=== PATIENT | female | born 1935 | race Caucasian/White ===

== ENCOUNTER 2019-06-09 07:02 | Inpatient (IN) | payer MEDICARE, MEDICAID ==
[~2019-06-09] VITALS: Ht 154.9 cm; Wt 66.2 kg
[~2019-06-09 07:02] MED LIST: ALIS150T PO; AMLO1TAB12 PO; CALC500T62 PO; ESCI-8 PO; FLAX10002 PO; METH500T6 PO; METO-416 PO; MULT-598 PO; QUET50TA PO; TRAM50TA4 PO
[2019-06-09 07:43] LABS: BASOPHILS % (AUTO) 0.7 % (0.0-2.0); EOSINOPHILS % (AUTO) 3.1 % (1.0-6.0); HEMATOCRIT 31.9 % (36-46); HEMOGLOBIN 10.6 g/dL (12.0-16.0); LYMPHOCYTES # (AUTO) 1.6 K/uL (1.0-4.8); LYMPHOCYTES % (AUTO) 32.8 % (22.0-44.0); MEAN CORPUSCULAR HEMOGLOBIN 30.6 pg (26.0-34.0); MEAN CORPUSCULAR HGB CONC 33.3 G/dL (31.0-37.0); MEAN CORPUSCULAR VOLUME 92 fL (80-100); MONOCYTES # (AUTO) 0.4 K/uL (0.1-1.0); MONOCYTES % (AUTO) 8.5 % (2.0-9.0); NEUTROPHILS # (AUTO) 2.6 K/uL (1.8-7.7); NEUTROPHILS % (AUTO) 54.9 % (40.0-70.0); PLATELET COUNT (AUTO) 159 K/uL (150-450); RED BLOOD CELL COUNT(AUTO) 3.48 MIL/uL (4.00-5.20); RED CELL DISTRIBUTION WIDTH 13.1 % (11.5-14.5)
[2019-06-09 07:53] LABS: ANION GAP 8 mmol/L (8-16); CALCIUM, TOTAL 8.7 mg/dL (8.8-10.5); CARBON DIOXIDE 27 mmol/L (22-29); CHLORIDE 110 mmol/L (98-107); CREATININE 1.01 mg/dL (0.60-1.30); GLOMERULAR FILTR. RATE CALC 52 mL/min (>60); GLUCOSE,RANDOM 98 mg/dL (70-110); SODIUM SERUM 145 mmol/L (136-145); UREA NITROGEN, BLOOD 25 mg/dL (7-18)
[2019-06-09 08:06] LABS: ALANINE AMINOTRANSFERASE 27 U/L (12-78); ALBUMIN 3.1 g/dL (3.4-5.0); ALKALINE PHOSPHATASE 59 U/L (46-116); ASPARTATE AMINOTRANSFERASE 23 U/L (15-37); BILIRUBIN,TOTAL 0.1 mg/dL (0.1-1.0); THYROID STIMULATING HORMONE 9.59 uIU/mL (0.36-3.74); TOTAL PROTEIN, SERUM 6.7 g/dL (6.4-8.2)
[2019-06-09 09:45] LABS: APPEARANCE,URINE CLEAR (CLEAR); BILIRUBIN,URINE NEGATIVE (NEGATIVE); GLUCOSE, URINE (UA) NEGATIVE (NEGATIVE); KETONES,URINE NEGATIVE (NEGATIVE); LEUKOCYTE ESTERASE ,URINE NEGATIVE (NEGATIVE); NITRATE,URINE NEGATIVE (NEGATIVE); OCCULT BLOOD,URINE MODERATE (NEGATIVE); PH,URINE 7.5 (5.0-8.0); PROTEIN,URINE NEGATIVE (NEGATIVE); UROBILINOGEN,URINE 0.2 mg/dL (<=1.0)
[2019-06-09 09:51] LABS: AMPHET/METH SCREEN,URINE NEGATIVE (NEGATIVE); BARBITURATE SCREEN, URINE NEGATIVE (NEGATIVE); BENZODIAZEPINES SCREEN,URINE NEGATIVE (NEGATIVE); CANNABINOID SCREEN,URINE NEGATIVE (NEGATIVE); COCAINE SCREEN,URINE NEGATIVE (NEGATIVE); METHADONE SCREEN, URINE NEGATIVE (NEGATIVE); OPIATE SCREEN,URINE NEGATIVE (NEGATIVE); PHENCYCLIDINE SCREEN,URINE NEGATIVE (NEGATIVE)
[2019-06-09 09:57] LABS: BACTERIA,URINE None Seen /HPF (None Seen); WBC,URINE 0-2 /HPF (0-5)
[2019-06-09] MEDS ORDERED: DiphenhydrAMINE HCL 50 MG/ML VIAL ONE (11:59)
[2019-06-09] MEDS ORDERED: HALOPERIDOL LACTATE 5 MG/ML VIAL ONE (11:59)
[2019-06-09] MEDS ORDERED: LORazepam 2 MG/ML VIAL ONE (11:59)
[2019-06-09] MEDS ORDERED: HALOPERIDOL LACTATE 5 MG/ML VIAL IM ONE (12:00)
[2019-06-09] MEDS ORDERED: DiphenhydrAMINE HCL 50 MG/ML VIAL IM ONE (12:00)
[2019-06-09] MEDS ORDERED: LORazepam 2 MG/ML VIAL IM ONE (12:00)
[2019-06-09] MEDS ORDERED: AMLO1TAB12 PO (12:05)
[2019-06-09] MEDS ORDERED: METO25XL PO (12:05)
[2019-06-09] MEDS ORDERED: OS500 PO (12:05)
[2019-06-09] MEDS ORDERED: LORA10TA7 PO (12:06)
[2019-06-09] MEDS ORDERED: LISI40TA4 PO (12:06)
[2019-06-09] MEDS ORDERED: [UNRECOGNIZED DRUG - CODE] PO (12:06)
[2019-06-09] MEDS ORDERED: HydrOXYzine PAMOATE 50 MG CAPSULE PO PRN (13:45)
[2019-06-09] MEDS ORDERED: MAGNESIUM HYDROXIDE SUSPENSION 30 ML UDCUP PO PRN ×2 (13:45→20:30)
[2019-06-09] MEDS ORDERED: LOPERAMIDE HCL 2 MG CAPSULE PO PRN ×2 (13:45→20:30)
[2019-06-09] MEDS ORDERED: MAG HYDROX/AL HYDROX/SIMETH ES 30 ML SUSPENSION UDCUP PO PRN (13:45)
[2019-06-09] MEDS ORDERED: PROMETHAZINE HCL 25 MG TABLET PO PRN (13:45)
[2019-06-09] MEDS ORDERED: CYANOCOBALAMIN 1,000 MCG/ML VIAL IM ONE (13:45)
[2019-06-09] MEDS ORDERED: LORazepam 2 MG TABLET PO PRN (13:45)
[2019-06-09] MEDS ORDERED: TUBERCULIN, PURIFIED PROTEIN DERIVATIVE 5 TU/0.1 ML SYRINGE ID ONE (13:45)
[2019-06-09] MEDS ORDERED: GuaiFENesin/D-METHORPHAN [SUGAR-FREE] 200-20MG/10 ML SYRUP UDCUP PO PRN (13:45)
[2019-06-09] MEDS: THIAMINE 100 MG TABLET PO SCH (17:36)
[2019-06-09 20:26] VITALS: BP 167/78
[2019-06-09] MEDS ORDERED: ALBUTEROL SULFATE HFA 90 MCG/PUFF 8 GM INHALER IH PRN (20:30)
[2019-06-09] MEDS ORDERED: NICOTINE 14 MG/24 HOUR PATCH TD PRN (20:30)
[2019-06-09] MEDS ORDERED: DOCUSATE SODIUM 100 MG CAPSULE PO PRN (20:30)
[2019-06-09] MEDS ORDERED: ONDANSETRON HCL 4 MG TABLET PO PRN (20:30)
[2019-06-09 21:47] VITALS: BP 167/78
[2019-06-09] MEDS: AmLODIPine BESYLATE 5 MG TABLET PO SCH (22:40)
[2019-06-10] MEDS: LURASIDONE HCL 40 MG TABLET PO SCH (06:56)
[2019-06-10 07:18] LABS: HEMOGLOBIN A1C 5.4 % (3.8-5.6)
[2019-06-10 07:29] LABS: CHOL/HDL RATIO 2.8 (3.9-5.7); FREE T4 (FREE THYROXINE) 1.05 ng/dL (0.76-1.46); THYROID STIMULATING HORMONE 8.04 uIU/mL (0.36-3.74)
[2019-06-10 08:00] VITALS: BP 166/80
[2019-06-10] MEDS: AmLODIPine BESYLATE 5 MG TABLET PO SCH (08:27)
[2019-06-10] MEDS: LORATADINE 10 MG TABLET PO SCH (08:27)
[2019-06-10] MEDS: THIAMINE 100 MG TABLET PO SCH ×2 (08:27→16:08)
[2019-06-10] MEDS: FOLIC ACID 1 MG TABLET PO SCH (08:27)
[2019-06-10] MEDS: METOPROLOL SUCCINATE 25 MG ER TABLET PO SCH (08:27)
[2019-06-10] MEDS: MULTIVITAMINS WITH MINERALS, THERAPEUTIC TABLET PO SCH (08:27)
[2019-06-10] MEDS: OLANZapine 5 MG RAPDIS TABLET PO PRN (11:04)
[2019-06-10 16:17] VITALS: BP 144/52
[2019-06-11] MEDS: LURASIDONE HCL 40 MG TABLET PO SCH (06:55)
[2019-06-11] MEDS: MULTIVITAMINS WITH MINERALS, THERAPEUTIC TABLET PO SCH (08:25)
[2019-06-11] MEDS: AmLODIPine BESYLATE 5 MG TABLET PO SCH (08:25)
[2019-06-11] MEDS: THIAMINE 100 MG TABLET PO SCH ×2 (08:25→16:58)
[2019-06-11] MEDS: FOLIC ACID 1 MG TABLET PO SCH (08:25)
[2019-06-11] MEDS: LORATADINE 10 MG TABLET PO SCH (08:25)
[2019-06-11] MEDS: METOPROLOL SUCCINATE 25 MG ER TABLET PO SCH (08:25)
[2019-06-11 08:46] VITALS: BP 165/76
[2019-06-11] MEDS ORDERED: ONDANSETRON HCL 4 MG TABLET PO PRN (16:00)
[2019-06-11] MEDS ORDERED: IBUPROFEN 400 MG TABLET PO PRN (16:00)
[2019-06-11] MEDS ORDERED: LOPERAMIDE HCL 2 MG CAPSULE PO PRN (16:00)
[2019-06-11] MEDS ORDERED: ACETAMINOPHEN 325 MG TABLET PO PRN (16:00)
[2019-06-11] MEDS ORDERED: CloNIDine HCL 0.1 MG TABLET PO PRN (16:00)
[2019-06-11] MEDS ORDERED: GuaiFENesin/D-METHORPHAN [SUGAR-FREE] 200-20MG/10 ML SYRUP UDCUP PO PRN (16:00)
[2019-06-11] MEDS ORDERED: MAGNESIUM HYDROXIDE SUSPENSION 30 ML UDCUP PO PRN (16:00)
[2019-06-11] MEDS ORDERED: MAG HYDROX/AL HYDROX/SIMETH ES 30 ML SUSPENSION UDCUP PO PRN (16:00)
[2019-06-11] MEDS ORDERED: PETROLATUM,WHITE 28 GM JELLY TP PRN (16:00)
[2019-06-11] MEDS ORDERED: ALBUTEROL SULFATE HFA 90 MCG/PUFF 8 GM INHALER IH PRN (16:00)
[2019-06-11] MEDS ORDERED: DOCUSATE SODIUM 100 MG CAPSULE PO PRN (16:00)
[2019-06-11] MEDS ORDERED: NICOTINE 14 MG/24 HOUR PATCH TD PRN (16:00)
[2019-06-11 16:28] VITALS: BP 141/50
[2019-06-12 02:28] VITALS: BP 165/85
[2019-06-12] MEDS: LURASIDONE HCL 40 MG TABLET PO SCH (06:39)
[2019-06-12 08:52] VITALS: BP 166/74
[2019-06-12] MEDS ORDERED: [UNRECOGNIZED DRUG - OTHER] PO SCH (09:00)
[2019-06-12] MEDS ORDERED: [UNRECOGNIZED DRUG - OTHER] PO SCH (09:00)
[2019-06-12] MEDS: LORATADINE 10 MG TABLET PO SCH (09:08)
[2019-06-12] MEDS: CALCIUM OYSTER SHELL 500 MG TABLET PO SCH (09:08)
[2019-06-12] MEDS: FOLIC ACID 1 MG TABLET PO SCH (09:08)
[2019-06-12] MEDS: THIAMINE 100 MG TABLET PO SCH ×2 (09:08→16:55)
[2019-06-12] MEDS: AmLODIPine BESYLATE 5 MG TABLET PO SCH (09:08)
[2019-06-12] MEDS: MULTIVITAMINS WITH MINERALS, THERAPEUTIC TABLET PO SCH (09:08)
[2019-06-12] MEDS: METOPROLOL SUCCINATE 25 MG ER TABLET PO SCH (09:08)
[2019-06-12] MEDS: VALSARTAN 160 MG TABLET PO SCH (09:09)
[2019-06-12 17:30] VITALS: BP 160/86
[2019-06-13] MEDS: LURASIDONE HCL 40 MG TABLET PO SCH (06:56)
[2019-06-13] MEDS: VALSARTAN 160 MG TABLET PO SCH (08:07)
[2019-06-13] MEDS: FOLIC ACID 1 MG TABLET PO SCH (08:07)
[2019-06-13] MEDS: CALCIUM OYSTER SHELL 500 MG TABLET PO SCH (08:07)
[2019-06-13] MEDS: MULTIVITAMINS WITH MINERALS, THERAPEUTIC TABLET PO SCH (08:07)
[2019-06-13] MEDS: THIAMINE 100 MG TABLET PO SCH ×2 (08:07→16:22)
[2019-06-13] MEDS: LORATADINE 10 MG TABLET PO SCH (08:07)
[2019-06-13] MEDS: METOPROLOL SUCCINATE 25 MG ER TABLET PO SCH (08:07)
[2019-06-13 08:18] VITALS: BP 192/70
[2019-06-13] MEDS: AmLODIPine BESYLATE 5 MG TABLET PO SCH (11:12)
[2019-06-13 16:04] VITALS: BP 158/65
[2019-06-14] MEDS: LURASIDONE HCL 40 MG TABLET PO SCH ×3 (06:55→07:30)
[2019-06-14] MEDS ORDERED: LORazepam 2 MG/ML VIAL IM ONE (08:15)
[2019-06-14] MEDS ORDERED: DiphenhydrAMINE HCL 50 MG/ML VIAL IM ONE (08:15)
[2019-06-14] MEDS ORDERED: HALOPERIDOL LACTATE 5 MG/ML VIAL IM ONE (08:15)
[2019-06-14] MEDS: THIAMINE 100 MG TABLET PO SCH ×2 (09:00→16:42)
[2019-06-14] MEDS: METOPROLOL SUCCINATE 25 MG ER TABLET PO SCH (09:00)
[2019-06-14] MEDS: FOLIC ACID 1 MG TABLET PO SCH (09:00)
[2019-06-14] MEDS: CALCIUM OYSTER SHELL 500 MG TABLET PO SCH (09:00)
[2019-06-14] MEDS: VALSARTAN 160 MG TABLET PO SCH (09:00)
[2019-06-14] MEDS: AmLODIPine BESYLATE 5 MG TABLET PO SCH (09:00)
[2019-06-14] MEDS: LORATADINE 10 MG TABLET PO SCH (09:00)
[2019-06-14] MEDS: MULTIVITAMINS WITH MINERALS, THERAPEUTIC TABLET PO SCH (09:00)
[2019-06-14 16:09] VITALS: BP 158/75
[2019-06-15 01:43] VITALS: BP 153/73
[2019-06-15] MEDS: LURASIDONE HCL 40 MG TABLET PO SCH (07:14)
[2019-06-15] MEDS: AmLODIPine BESYLATE 5 MG TABLET PO SCH (10:08)
[2019-06-15] MEDS: MULTIVITAMINS WITH MINERALS, THERAPEUTIC TABLET PO SCH (10:08)
[2019-06-15] MEDS: FOLIC ACID 1 MG TABLET PO SCH (10:08)
[2019-06-15] MEDS: LORATADINE 10 MG TABLET PO SCH (10:08)
[2019-06-15] MEDS: VALSARTAN 160 MG TABLET PO SCH (10:09)
[2019-06-15] MEDS: LORazepam 0.5 MG TABLET PO PRN (10:09)
[2019-06-15] MEDS: METOPROLOL SUCCINATE 25 MG ER TABLET PO SCH (10:09)
[2019-06-15] MEDS: THIAMINE 100 MG TABLET PO SCH ×2 (10:09→16:45)
[2019-06-15] MEDS: OLANZapine 5 MG RAPDIS TABLET PO PRN (10:09)
[2019-06-15] MEDS: CALCIUM OYSTER SHELL 500 MG TABLET PO SCH (10:09)
[2019-06-15 10:33] VITALS: BP 153/60
[2019-06-15 18:07] VITALS: BP 128/61
[2019-06-16 01:50] VITALS: BP 158/65
[2019-06-16] MEDS: IBUPROFEN 400 MG TABLET PO PRN ×2 (01:55→21:53)
[2019-06-16 02:03] VITALS: BP 158/65
[2019-06-16] MEDS: LURASIDONE HCL 40 MG TABLET PO SCH (06:44)
[2019-06-16 08:19] VITALS: BP 162/69
[2019-06-16] MEDS: AmLODIPine BESYLATE 10 MG TABLET PO SCH (08:57)
[2019-06-16] MEDS: FOLIC ACID 1 MG TABLET PO SCH (08:57)
[2019-06-16] MEDS: CALCIUM OYSTER SHELL 500 MG TABLET PO SCH (08:57)
[2019-06-16] MEDS: MULTIVITAMINS WITH MINERALS, THERAPEUTIC TABLET PO SCH (08:57)
[2019-06-16] MEDS: THIAMINE 100 MG TABLET PO SCH ×2 (08:57→16:41)
[2019-06-16] MEDS: LORATADINE 10 MG TABLET PO SCH (09:00)
[2019-06-16] MEDS: VALSARTAN 160 MG TABLET PO SCH (09:00)
[2019-06-16] MEDS: METOPROLOL SUCCINATE 25 MG ER TABLET PO SCH (09:00)
[2019-06-16 16:22] VITALS: BP 160/72
[2019-06-16 21:53] VITALS: BP 120/80
[2019-06-17] MEDS ORDERED: HALOPERIDOL LACTATE 5 MG/ML VIAL IM ONE (07:30)
[2019-06-17] MEDS ORDERED: LORazepam 2 MG/ML VIAL IM ONE (07:30)
[2019-06-17] MEDS ORDERED: DiphenhydrAMINE HCL 50 MG/ML VIAL IM ONE (07:30)
[2019-06-17] MEDS: THIAMINE 100 MG TABLET PO SCH ×2 (09:16→16:35)
[2019-06-17] MEDS: CALCIUM OYSTER SHELL 500 MG TABLET PO SCH (09:16)
[2019-06-17] MEDS: VALSARTAN 160 MG TABLET PO SCH (09:16)
[2019-06-17] MEDS: AmLODIPine BESYLATE 10 MG TABLET PO SCH (09:16)
[2019-06-17] MEDS: LORATADINE 10 MG TABLET PO SCH (09:19)
[2019-06-17] MEDS: FOLIC ACID 1 MG TABLET PO SCH (09:19)
[2019-06-17] MEDS: METOPROLOL SUCCINATE 25 MG ER TABLET PO SCH (09:19)
[2019-06-17] MEDS: MULTIVITAMINS WITH MINERALS, THERAPEUTIC TABLET PO SCH (09:19)
[2019-06-17] MEDS: LURASIDONE HCL 40 MG TABLET PO SCH (12:33)
[2019-06-17 14:18] VITALS: BP 142/76
[2019-06-17 16:24] VITALS: BP 132/84
[2019-06-17] MEDS: OLANZapine 5 MG RAPDIS TABLET PO PRN (16:37)
[2019-06-17] MEDS: LORazepam 0.5 MG TABLET PO PRN (17:22)
[2019-06-18 01:13] VITALS: BP 152/85
[2019-06-18] MEDS: MAG HYDROX/AL HYDROX/SIMETH ES 30 ML SUSPENSION UDCUP PO PRN (05:31)
[2019-06-18] MEDS: LURASIDONE HCL 40 MG TABLET PO SCH (06:36)
[2019-06-18] MEDS: THIAMINE 100 MG TABLET PO SCH ×2 (08:33→17:00)
[2019-06-18] MEDS: LORATADINE 10 MG TABLET PO SCH (08:33)
[2019-06-18] MEDS: CALCIUM OYSTER SHELL 500 MG TABLET PO SCH (08:33)
[2019-06-18] MEDS: MULTIVITAMINS WITH MINERALS, THERAPEUTIC TABLET PO SCH (08:33)
[2019-06-18] MEDS: FOLIC ACID 1 MG TABLET PO SCH (08:33)
[2019-06-18] MEDS: METOPROLOL SUCCINATE 25 MG ER TABLET PO SCH (08:33)
[2019-06-18] MEDS: AmLODIPine BESYLATE 10 MG TABLET PO SCH (08:34)
[2019-06-18] MEDS: VALSARTAN 160 MG TABLET PO SCH (08:34)
[2019-06-18 09:45] VITALS: BP 138/68
[2019-06-18] MEDS ORDERED: HALOPERIDOL LACTATE 5 MG/ML VIAL IM ONE (20:00)
[2019-06-18] MEDS ORDERED: DiphenhydrAMINE HCL 50 MG/ML VIAL IM ONE (20:00)
[2019-06-18] MEDS ORDERED: LORazepam 2 MG/ML VIAL IM ONE (20:00)
[2019-06-19] MEDS: ACETAMINOPHEN 325 MG TABLET PO PRN (00:19)
[2019-06-19 00:21] VITALS: BP 160/77
[2019-06-19] MEDS: LURASIDONE HCL 40 MG TABLET PO SCH (06:41)
[2019-06-19] MEDS: LEVOTHYROXINE SODIUM 25 MCG TABLET PO SCH (06:41)
[2019-06-19 08:30] VITALS: BP 138/60
[2019-06-19] MEDS: CALCIUM OYSTER SHELL 500 MG TABLET PO SCH (10:14)
[2019-06-19] MEDS: METOPROLOL SUCCINATE 25 MG ER TABLET PO SCH (10:14)
[2019-06-19] MEDS: VALSARTAN 160 MG TABLET PO SCH (10:14)
[2019-06-19] MEDS: AmLODIPine BESYLATE 10 MG TABLET PO SCH (10:14)
[2019-06-19] MEDS: LORATADINE 10 MG TABLET PO SCH (10:15)
[2019-06-19] MEDS: THIAMINE 100 MG TABLET PO SCH (10:15)
[2019-06-19] MEDS: MULTIVITAMINS WITH MINERALS, THERAPEUTIC TABLET PO SCH (10:15)
[2019-06-19] MEDS: FOLIC ACID 1 MG TABLET PO SCH (10:15)
[2019-06-19 16:23] VITALS: BP 146/66
[2019-06-19] MEDS ORDERED: LORazepam 2 MG/ML VIAL IM ONE (19:00)
[2019-06-19] MEDS ORDERED: DiphenhydrAMINE HCL 50 MG/ML VIAL IM ONE (19:00)
[2019-06-19] MEDS ORDERED: HALOPERIDOL LACTATE 5 MG/ML VIAL IM ONE (19:00)
[2019-06-20] MEDS: ACETAMINOPHEN 325 MG TABLET PO PRN (00:23)
[2019-06-20] MEDS: MAG HYDROX/AL HYDROX/SIMETH ES 30 ML SUSPENSION UDCUP PO PRN (01:04)
[2019-06-20] MEDS: LURASIDONE HCL 40 MG TABLET PO SCH (07:01)
[2019-06-20] MEDS: LEVOTHYROXINE SODIUM 25 MCG TABLET PO SCH (07:01)
[2019-06-20 08:05] VITALS: BP 129/60
[2019-06-20] MEDS: LORATADINE 10 MG TABLET PO SCH (09:00)
[2019-06-20] MEDS: VALSARTAN 160 MG TABLET PO SCH (09:00)
[2019-06-20] MEDS: METOPROLOL SUCCINATE 25 MG ER TABLET PO SCH (09:00)
[2019-06-20] MEDS: CALCIUM OYSTER SHELL 500 MG TABLET PO SCH (09:00)
[2019-06-20] MEDS: MULTIVITAMINS WITH MINERALS, THERAPEUTIC TABLET PO SCH (09:00)
[2019-06-20] MEDS: AmLODIPine BESYLATE 10 MG TABLET PO SCH (09:00)
[2019-06-20 16:18] VITALS: BP 127/72
[2019-06-20] MEDS: LORazepam 0.5 MG TABLET PO PRN (17:20)
[2019-06-20] MEDS: OLANZapine 5 MG RAPDIS TABLET PO PRN (21:12)
[2019-06-21] MEDS: LEVOTHYROXINE SODIUM 25 MCG TABLET PO SCH (07:00)
[2019-06-21] MEDS: LURASIDONE HCL 40 MG TABLET PO SCH (07:03)
[2019-06-21] MEDS: CALCIUM OYSTER SHELL 500 MG TABLET PO SCH ×2 (08:28→09:00)
[2019-06-21] MEDS: MULTIVITAMINS WITH MINERALS, THERAPEUTIC TABLET PO SCH ×2 (08:28→09:00)
[2019-06-21] MEDS: METOPROLOL SUCCINATE 25 MG ER TABLET PO SCH ×2 (08:29→09:00)
[2019-06-21] MEDS: LORATADINE 10 MG TABLET PO SCH (09:00)
[2019-06-21] MEDS: VALSARTAN 160 MG TABLET PO SCH (09:00)
[2019-06-21 16:05] VITALS: BP 156/79
[2019-06-21 17:30] VITALS: BP 144/67
[2019-06-21] MEDS: LORazepam 0.5 MG TABLET PO PRN (17:44)
[2019-06-22 05:16] VITALS: BP 133/63
[2019-06-22] MEDS: LEVOTHYROXINE SODIUM 25 MCG TABLET PO SCH (06:33)
[2019-06-22] MEDS: LURASIDONE HCL 40 MG TABLET PO SCH (06:34)
[2019-06-22] MEDS: VALSARTAN 160 MG TABLET PO SCH (08:05)
[2019-06-22] MEDS: METOPROLOL SUCCINATE 25 MG ER TABLET PO SCH (08:05)
[2019-06-22] MEDS: MULTIVITAMINS WITH MINERALS, THERAPEUTIC TABLET PO SCH (08:05)
[2019-06-22] MEDS: CALCIUM OYSTER SHELL 500 MG TABLET PO SCH (08:05)
[2019-06-22] MEDS: LORATADINE 10 MG TABLET PO SCH (08:05)
[2019-06-22] MEDS: LORazepam 0.5 MG TABLET PO PRN ×2 (08:08→17:34)
[2019-06-22 12:45] VITALS: BP 175/79
[2019-06-22 16:43] VITALS: BP 145/82
[2019-06-22] MEDS: OLANZapine 5 MG RAPDIS TABLET PO PRN (17:34)
[2019-06-23] MEDS: LEVOTHYROXINE SODIUM 25 MCG TABLET PO SCH (06:56)
[2019-06-23] MEDS: LURASIDONE HCL 40 MG TABLET PO SCH (07:03)
[2019-06-23] MEDS: LORATADINE 10 MG TABLET PO SCH (09:24)
[2019-06-23] MEDS: CALCIUM OYSTER SHELL 500 MG TABLET PO SCH (09:24)
[2019-06-23] MEDS: METOPROLOL SUCCINATE 25 MG ER TABLET PO SCH (09:24)
[2019-06-23] MEDS: MULTIVITAMINS WITH MINERALS, THERAPEUTIC TABLET PO SCH (09:24)
[2019-06-23] MEDS: VALSARTAN 160 MG TABLET PO SCH (09:25)
[2019-06-23 10:22] VITALS: BP 143/59
[2019-06-23 13:05] VITALS: BP 142/68
[2019-06-23] MEDS: ACETAMINOPHEN 325 MG TABLET PO PRN (13:05)
[2019-06-23 16:08] VITALS: BP 150/62
[2019-06-23] MEDS: GuaiFENesin/D-METHORPHAN [SUGAR-FREE] 200-20MG/10 ML SYRUP UDCUP PO PRN (18:13)
[2019-06-24 00:55] VITALS: BP 162/75
[2019-06-24] MEDS: GuaiFENesin/D-METHORPHAN [SUGAR-FREE] 200-20MG/10 ML SYRUP UDCUP PO PRN (04:50)
[2019-06-24] MEDS: LEVOTHYROXINE SODIUM 25 MCG TABLET PO SCH (06:44)
[2019-06-24] MEDS: LURASIDONE HCL 40 MG TABLET PO SCH (06:44)
[2019-06-24 08:20] VITALS: BP 147/54
[2019-06-24] MEDS: VALSARTAN 160 MG TABLET PO SCH (09:00)
[2019-06-24] MEDS: LORATADINE 10 MG TABLET PO SCH (09:05)
[2019-06-24] MEDS: MULTIVITAMINS WITH MINERALS, THERAPEUTIC TABLET PO SCH (09:05)
[2019-06-24] MEDS: METOPROLOL SUCCINATE 25 MG ER TABLET PO SCH (09:05)
[2019-06-24] MEDS: CALCIUM OYSTER SHELL 500 MG TABLET PO SCH (09:05)
[2019-06-24] MEDS: OLANZapine 5 MG RAPDIS TABLET PO PRN (14:12)
[2019-06-24] MEDS: LORazepam 0.5 MG TABLET PO PRN (14:12)
[2019-06-24 16:11] VITALS: BP 154/69
[2019-06-25 05:11] VITALS: BP 161/69
[2019-06-25] MEDS: LURASIDONE HCL 40 MG TABLET PO SCH (06:32)
[2019-06-25] MEDS: LEVOTHYROXINE SODIUM 25 MCG TABLET PO SCH (06:32)
[2019-06-25 08:20] VITALS: BP 159/70
[2019-06-25] MEDS: CALCIUM OYSTER SHELL 500 MG TABLET PO SCH (08:51)
[2019-06-25] MEDS: VALSARTAN 160 MG TABLET PO SCH (08:51)
[2019-06-25] MEDS: METOPROLOL SUCCINATE 25 MG ER TABLET PO SCH (08:51)
[2019-06-25] MEDS: MULTIVITAMINS WITH MINERALS, THERAPEUTIC TABLET PO SCH (08:51)
[2019-06-25] MEDS: LORATADINE 10 MG TABLET PO SCH (08:52)
[2019-06-25] MEDS: LORazepam 0.5 MG TABLET PO PRN (16:06)
[2019-06-25 16:21] VITALS: BP 169/77
[2019-06-26] MEDS: LEVOTHYROXINE SODIUM 25 MCG TABLET PO SCH (06:36)
[2019-06-26] MEDS: LURASIDONE HCL 40 MG TABLET PO SCH (06:36)
[2019-06-26] MEDS: CALCIUM OYSTER SHELL 500 MG TABLET PO SCH (09:13)
[2019-06-26] MEDS: MULTIVITAMINS WITH MINERALS, THERAPEUTIC TABLET PO SCH (09:13)
[2019-06-26] MEDS: VALSARTAN 160 MG TABLET PO SCH (09:13)
[2019-06-26] MEDS: METOPROLOL SUCCINATE 25 MG ER TABLET PO SCH (09:13)
[2019-06-26] MEDS: LORATADINE 10 MG TABLET PO SCH (09:13)
[2019-06-26 13:32] VITALS: BP 159/63
[2019-06-26 15:58] VITALS: BP_SYST 147; BP_SYST 193; BP_DIAS 60; BP_DIAS 73
[2019-06-26] MEDS: CloNIDine HCL 0.1 MG TABLET PO PRN (15:58)
[2019-06-26 17:13] VITALS: BP 154/82
[2019-06-27 03:10] VITALS: BP 178/93
[2019-06-27] MEDS: CloNIDine HCL 0.1 MG TABLET PO PRN (03:17)
[2019-06-27 04:10] VITALS: BP 157/76
[2019-06-27] MEDS: LEVOTHYROXINE SODIUM 25 MCG TABLET PO SCH (06:34)
[2019-06-27] MEDS: LURASIDONE HCL 40 MG TABLET PO SCH (06:34)
[2019-06-27] MEDS: LORATADINE 10 MG TABLET PO SCH (09:00)
[2019-06-27] MEDS: CALCIUM OYSTER SHELL 500 MG TABLET PO SCH (09:00)
[2019-06-27] MEDS: VALSARTAN 160 MG TABLET PO SCH (09:00)
[2019-06-27] MEDS: MULTIVITAMINS WITH MINERALS, THERAPEUTIC TABLET PO SCH (09:00)
[2019-06-27] MEDS: METOPROLOL SUCCINATE 25 MG ER TABLET PO SCH (09:00)
[2019-06-27 18:30] VITALS: BP 121/63
[2019-06-27] MEDS: IBUPROFEN 400 MG TABLET PO PRN (18:32)
[2019-06-27] MEDS: GuaiFENesin/D-METHORPHAN [SUGAR-FREE] 200-20MG/10 ML SYRUP UDCUP PO PRN (20:50)
[2019-06-28] MEDS: LURASIDONE HCL 40 MG TABLET PO SCH (06:46)
[2019-06-28] MEDS: LEVOTHYROXINE SODIUM 25 MCG TABLET PO SCH (06:46)
[2019-06-28 08:36] VITALS: BP 133/53
[2019-06-28] MEDS: MULTIVITAMINS WITH MINERALS, THERAPEUTIC TABLET PO SCH (08:53)
[2019-06-28] MEDS: METOPROLOL SUCCINATE 25 MG ER TABLET PO SCH (08:53)
[2019-06-28] MEDS: CALCIUM OYSTER SHELL 500 MG TABLET PO SCH (08:53)
[2019-06-28] MEDS: VALSARTAN 160 MG TABLET PO SCH (08:53)
[2019-06-28] MEDS: LORATADINE 10 MG TABLET PO SCH (08:53)
[2019-06-28 16:04] VITALS: BP 141/84
[2019-06-29 01:04] VITALS: BP 116/77
[2019-06-29 01:52] VITALS: BP 161/60
[2019-06-29] MEDS: LEVOTHYROXINE SODIUM 25 MCG TABLET PO SCH (06:30)
[2019-06-29] MEDS: LURASIDONE HCL 40 MG TABLET PO SCH (06:30)
[2019-06-29] MEDS: MULTIVITAMINS WITH MINERALS, THERAPEUTIC TABLET PO SCH (09:06)
[2019-06-29] MEDS: VALSARTAN 160 MG TABLET PO SCH (09:06)
[2019-06-29] MEDS: CALCIUM OYSTER SHELL 500 MG TABLET PO SCH (09:06)
[2019-06-29] MEDS: METOPROLOL SUCCINATE 25 MG ER TABLET PO SCH (09:06)
[2019-06-29] MEDS: LORATADINE 10 MG TABLET PO SCH (09:06)
[2019-06-29 09:18] VITALS: BP 184/60
[2019-06-29 13:08] VITALS: BP 120/60
[2019-06-29 16:20] VITALS: BP 158/78
[2019-06-30] MEDS: LURASIDONE HCL 40 MG TABLET PO SCH (06:34)
[2019-06-30] MEDS: LEVOTHYROXINE SODIUM 25 MCG TABLET PO SCH (06:34)
[2019-06-30] MEDS: LORATADINE 10 MG TABLET PO SCH (09:30)
[2019-06-30] MEDS: METOPROLOL SUCCINATE 25 MG ER TABLET PO SCH (09:30)
[2019-06-30] MEDS: VALSARTAN 160 MG TABLET PO SCH (09:30)
[2019-06-30] MEDS: MULTIVITAMINS WITH MINERALS, THERAPEUTIC TABLET PO SCH (09:30)
[2019-06-30] MEDS: CALCIUM OYSTER SHELL 500 MG TABLET PO SCH (09:30)
[2019-06-30 11:13] VITALS: BP 159/70
[2019-06-30 18:38] VITALS: BP 191/62
[2019-06-30] MEDS ORDERED: DiphenhydrAMINE HCL 50 MG/ML VIAL IM ONE (23:30)
[2019-06-30] MEDS ORDERED: HALOPERIDOL LACTATE 5 MG/ML VIAL IM ONE (23:30)
[2019-06-30] MEDS ORDERED: LORazepam 2 MG/ML VIAL IM ONE (23:30)
[2019-07-01] MEDS: LURASIDONE HCL 40 MG TABLET PO SCH ×2 (06:54→17:15)
[2019-07-01] MEDS: LEVOTHYROXINE SODIUM 25 MCG TABLET PO SCH (06:54)
[2019-07-01] MEDS: MULTIVITAMINS WITH MINERALS, THERAPEUTIC TABLET PO SCH (08:46)
[2019-07-01] MEDS: CALCIUM OYSTER SHELL 500 MG TABLET PO SCH (08:46)
[2019-07-01] MEDS: VALSARTAN 160 MG TABLET PO SCH (08:47)
[2019-07-01] MEDS: METOPROLOL SUCCINATE 25 MG ER TABLET PO SCH (08:47)
[2019-07-01] MEDS: LORATADINE 10 MG TABLET PO SCH (08:48)
[2019-07-01] MEDS: IBUPROFEN 400 MG TABLET PO PRN (12:21)
[2019-07-01 12:44] VITALS: BP 154/90
[2019-07-01 16:03] VITALS: BP 159/92
[2019-07-02] MEDS: LURASIDONE HCL 40 MG TABLET PO SCH ×2 (06:53→16:44)
[2019-07-02] MEDS: LEVOTHYROXINE SODIUM 25 MCG TABLET PO SCH (06:53)
[2019-07-02 08:29] VITALS: BP 152/85
[2019-07-02] MEDS: MULTIVITAMINS WITH MINERALS, THERAPEUTIC TABLET PO SCH (09:15)
[2019-07-02] MEDS: VALSARTAN 160 MG TABLET PO SCH (09:16)
[2019-07-02] MEDS: CALCIUM OYSTER SHELL 500 MG TABLET PO SCH (09:16)
[2019-07-02] MEDS: LORATADINE 10 MG TABLET PO SCH (09:16)
[2019-07-02] MEDS: METOPROLOL SUCCINATE 25 MG ER TABLET PO SCH (09:16)
[2019-07-02 16:10] VITALS: BP 150/65
[2019-07-02] MEDS: LORazepam 0.5 MG TABLET PO PRN (21:22)
[2019-07-03] MEDS: LEVOTHYROXINE SODIUM 25 MCG TABLET PO SCH (06:33)
[2019-07-03] MEDS: LURASIDONE HCL 40 MG TABLET PO SCH ×2 (06:33→17:05)
[2019-07-03 08:22] VITALS: BP 140/79
[2019-07-03] MEDS: VALSARTAN 160 MG TABLET PO SCH (08:53)
[2019-07-03] MEDS: LORATADINE 10 MG TABLET PO SCH (08:53)
[2019-07-03] MEDS: CALCIUM OYSTER SHELL 500 MG TABLET PO SCH (08:53)
[2019-07-03] MEDS: METOPROLOL SUCCINATE 25 MG ER TABLET PO SCH (08:53)
[2019-07-03] MEDS: MULTIVITAMINS WITH MINERALS, THERAPEUTIC TABLET PO SCH (08:54)
[2019-07-03 16:25] VITALS: BP 150/60
[2019-07-03] MEDS: LORazepam 0.5 MG TABLET PO PRN (18:59)
[2019-07-03 19:39] VITALS: BP 179/99
[2019-07-03] MEDS: CloNIDine HCL 0.1 MG TABLET PO PRN (19:39)
[2019-07-03 20:39] VITALS: BP 163/93
[2019-07-03] MEDS: ZOLPIDEM TARTRATE 10 MG TABLET PO PRN (21:13)
[2019-07-03 21:44] VITALS: BP 150/90
[2019-07-04 03:52] VITALS: BP 152/63
[2019-07-04] MEDS: LEVOTHYROXINE SODIUM 25 MCG TABLET PO SCH (06:55)
[2019-07-04] MEDS: LURASIDONE HCL 40 MG TABLET PO SCH (06:56)
[2019-07-04] MEDS: METOPROLOL SUCCINATE 25 MG ER TABLET PO SCH (09:14)
[2019-07-04] MEDS: MULTIVITAMINS WITH MINERALS, THERAPEUTIC TABLET PO SCH (09:14)
[2019-07-04] MEDS: CALCIUM OYSTER SHELL 500 MG TABLET PO SCH (09:14)
[2019-07-04] MEDS: LORATADINE 10 MG TABLET PO SCH (09:14)
[2019-07-04] MEDS: VALSARTAN 160 MG TABLET PO SCH (09:15)
[2019-07-04 13:00] VITALS: BP 158/65
[2019-07-04 13:19] VITALS: BP 158/65
[2019-07-04] MEDS: LURASIDONE HCL 60 MG TABLET PO SCH (16:31)
[2019-07-04 16:55] VITALS: BP 149/53
[2019-07-05 01:48] VITALS: BP 157/71
[2019-07-05] MEDS: LEVOTHYROXINE SODIUM 25 MCG TABLET PO SCH (06:39)
[2019-07-05] MEDS: LURASIDONE HCL 20 MG TABLET PO SCH (06:39)
[2019-07-05] MEDS: LORATADINE 10 MG TABLET PO SCH (08:39)
[2019-07-05] MEDS: CALCIUM OYSTER SHELL 500 MG TABLET PO SCH (08:39)
[2019-07-05] MEDS: MULTIVITAMINS WITH MINERALS, THERAPEUTIC TABLET PO SCH (08:39)
[2019-07-05] MEDS: VALSARTAN 160 MG TABLET PO SCH (08:39)
[2019-07-05] MEDS: METOPROLOL SUCCINATE 25 MG ER TABLET PO SCH (08:39)
[2019-07-05 08:56] VITALS: BP 138/79
[2019-07-05 16:00] VITALS: BP 161/66
[2019-07-05] MEDS: LURASIDONE HCL 60 MG TABLET PO SCH (16:39)
[2019-07-05 18:25] VITALS: BP 204/80
[2019-07-05 18:30] VITALS: BP 189/78
[2019-07-05] MEDS ORDERED: HydrALAZINE HCL 10 MG TABLET PO PRN (18:45)
[2019-07-05] MEDS: AmLODIPine BESYLATE 5 MG TABLET PO SCH (18:51)
[2019-07-05 19:51] VITALS: BP 162/98
[2019-07-06 05:13] VITALS: BP 164/76
[2019-07-06] MEDS: LEVOTHYROXINE SODIUM 25 MCG TABLET PO SCH (06:46)
[2019-07-06] MEDS: LURASIDONE HCL 20 MG TABLET PO SCH (06:47)
[2019-07-06] MEDS: METOPROLOL SUCCINATE 25 MG ER TABLET PO SCH (09:00)
[2019-07-06 10:56] VITALS: BP 162/66
[2019-07-06] MEDS: LORATADINE 10 MG TABLET PO SCH (10:57)
[2019-07-06] MEDS: AmLODIPine BESYLATE 5 MG TABLET PO SCH (10:58)
[2019-07-06] MEDS: VALSARTAN 160 MG TABLET PO SCH (10:58)
[2019-07-06] MEDS: MULTIVITAMINS WITH MINERALS, THERAPEUTIC TABLET PO SCH (10:58)
[2019-07-06] MEDS: CALCIUM OYSTER SHELL 500 MG TABLET PO SCH (10:58)
[2019-07-06] MEDS: LURASIDONE HCL 60 MG TABLET PO SCH (16:32)
[2019-07-06 17:00] VITALS: BP 158/78
[2019-07-07 03:12] VITALS: BP 158/73
[2019-07-07] MEDS: LURASIDONE HCL 20 MG TABLET PO SCH (06:56)
[2019-07-07] MEDS: LEVOTHYROXINE SODIUM 25 MCG TABLET PO SCH (06:56)
[2019-07-07] MEDS: MULTIVITAMINS WITH MINERALS, THERAPEUTIC TABLET PO SCH (08:37)
[2019-07-07] MEDS: VALSARTAN 160 MG TABLET PO SCH (08:37)
[2019-07-07] MEDS: LORATADINE 10 MG TABLET PO SCH (08:37)
[2019-07-07] MEDS: METOPROLOL SUCCINATE 25 MG ER TABLET PO SCH (08:38)
[2019-07-07] MEDS: AmLODIPine BESYLATE 5 MG TABLET PO SCH (08:38)
[2019-07-07] MEDS: CALCIUM OYSTER SHELL 500 MG TABLET PO SCH (08:38)
[2019-07-07 10:46] VITALS: BP 154/64
[2019-07-07] MEDS: LURASIDONE HCL 60 MG TABLET PO SCH (16:58)
[2019-07-07 18:00] VITALS: BP 149/48
[2019-07-08 05:19] VITALS: BP 156/59
[2019-07-08] MEDS: LEVOTHYROXINE SODIUM 25 MCG TABLET PO SCH (06:43)
[2019-07-08] MEDS: LURASIDONE HCL 20 MG TABLET PO SCH (06:43)
[2019-07-08 08:30] VITALS: BP 164/64
[2019-07-08] MEDS: METOPROLOL SUCCINATE 25 MG ER TABLET PO SCH (09:16)
[2019-07-08] MEDS: VALSARTAN 160 MG TABLET PO SCH (09:16)
[2019-07-08] MEDS: AmLODIPine BESYLATE 5 MG TABLET PO SCH (09:16)
[2019-07-08] MEDS: LORATADINE 10 MG TABLET PO SCH (09:16)
[2019-07-08] MEDS: CALCIUM OYSTER SHELL 500 MG TABLET PO SCH (09:16)
[2019-07-08] MEDS: MULTIVITAMINS WITH MINERALS, THERAPEUTIC TABLET PO SCH (09:16)
[2019-07-08] MEDS: LURASIDONE HCL 60 MG TABLET PO SCH (17:09)
[2019-07-08 21:57] VITALS: BP 145/65
[2019-07-09 00:19] VITALS: BP 166/74
[2019-07-09] MEDS: LEVOTHYROXINE SODIUM 25 MCG TABLET PO SCH (06:35)
[2019-07-09] MEDS: LURASIDONE HCL 20 MG TABLET PO SCH (06:35)
[2019-07-09 09:28] VITALS: BP 158/73
[2019-07-09] MEDS: METOPROLOL SUCCINATE 25 MG ER TABLET PO SCH (09:41)
[2019-07-09] MEDS: CALCIUM OYSTER SHELL 500 MG TABLET PO SCH (09:41)
[2019-07-09] MEDS: AmLODIPine BESYLATE 5 MG TABLET PO SCH (09:41)
[2019-07-09] MEDS: LORATADINE 10 MG TABLET PO SCH (09:41)
[2019-07-09] MEDS: VALSARTAN 160 MG TABLET PO SCH (09:41)
[2019-07-09] MEDS: MULTIVITAMINS WITH MINERALS, THERAPEUTIC TABLET PO SCH (09:41)
[2019-07-09 17:14] VITALS: BP 160/79
[2019-07-09] MEDS: LURASIDONE HCL 60 MG TABLET PO SCH (17:18)
[2019-07-10] MEDS: LURASIDONE HCL 20 MG TABLET PO SCH (06:50)
[2019-07-10] MEDS: LEVOTHYROXINE SODIUM 25 MCG TABLET PO SCH (06:50)
[2019-07-10 06:58] VITALS: BP 167/67
[2019-07-10 08:00] VITALS: BP 179/67
[2019-07-10] MEDS: AmLODIPine BESYLATE 5 MG TABLET PO SCH (09:30)
[2019-07-10] MEDS: CALCIUM OYSTER SHELL 500 MG TABLET PO SCH (09:30)
[2019-07-10] MEDS: LORATADINE 10 MG TABLET PO SCH (09:30)
[2019-07-10] MEDS: METOPROLOL SUCCINATE 25 MG ER TABLET PO SCH (09:30)
[2019-07-10] MEDS: MULTIVITAMINS WITH MINERALS, THERAPEUTIC TABLET PO SCH (09:30)
[2019-07-10] MEDS: VALSARTAN 160 MG TABLET PO SCH (09:30)
[2019-07-10] MEDS: LURASIDONE HCL 60 MG TABLET PO SCH (17:11)
[2019-07-10 21:16] VITALS: BP 143/66
[2019-07-10] MEDS: IBUPROFEN 400 MG TABLET PO PRN (22:18)
[2019-07-10] MEDS: ZOLPIDEM TARTRATE 10 MG TABLET PO PRN (22:22)
[2019-07-11 04:57] VITALS: BP 149/72
[2019-07-11] MEDS: LURASIDONE HCL 20 MG TABLET PO SCH (06:42)
[2019-07-11] MEDS: LEVOTHYROXINE SODIUM 25 MCG TABLET PO SCH (06:42)
[2019-07-11] MEDS: VALSARTAN 160 MG TABLET PO SCH (09:22)
[2019-07-11] MEDS: METOPROLOL SUCCINATE 25 MG ER TABLET PO SCH (09:22)
[2019-07-11] MEDS: CALCIUM OYSTER SHELL 500 MG TABLET PO SCH (09:22)
[2019-07-11] MEDS: MULTIVITAMINS WITH MINERALS, THERAPEUTIC TABLET PO SCH (09:22)
[2019-07-11] MEDS: AmLODIPine BESYLATE 5 MG TABLET PO SCH (09:22)
[2019-07-11] MEDS: LORATADINE 10 MG TABLET PO SCH (09:22)
[2019-07-11 16:25] VITALS: BP 142/55
[2019-07-11] MEDS: LURASIDONE HCL 60 MG TABLET PO SCH (16:57)
[2019-07-12 01:01] VITALS: BP 168/71
[2019-07-12] MEDS: LURASIDONE HCL 20 MG TABLET PO SCH (06:54)
[2019-07-12] MEDS: LEVOTHYROXINE SODIUM 25 MCG TABLET PO SCH (06:54)
[2019-07-12] MEDS: VALSARTAN 160 MG TABLET PO SCH (08:44)
[2019-07-12] MEDS: MULTIVITAMINS WITH MINERALS, THERAPEUTIC TABLET PO SCH (08:44)
[2019-07-12] MEDS: LORATADINE 10 MG TABLET PO SCH (08:44)
[2019-07-12] MEDS: METOPROLOL SUCCINATE 25 MG ER TABLET PO SCH (08:44)
[2019-07-12] MEDS: AmLODIPine BESYLATE 5 MG TABLET PO SCH (08:44)
[2019-07-12] MEDS: CALCIUM OYSTER SHELL 500 MG TABLET PO SCH (08:44)
[2019-07-12 09:40] VITALS: BP 157/85
[2019-07-12 17:03] VITALS: BP 148/71
[2019-07-12] MEDS: LURASIDONE HCL 60 MG TABLET PO SCH (17:30)
[2019-07-13 01:19] VITALS: BP 152/72
[2019-07-13] MEDS: LEVOTHYROXINE SODIUM 25 MCG TABLET PO SCH (07:00)
[2019-07-13] MEDS: LURASIDONE HCL 20 MG TABLET PO SCH (07:01)
[2019-07-13] MEDS: VALSARTAN 160 MG TABLET PO SCH (08:46)
[2019-07-13] MEDS: AmLODIPine BESYLATE 5 MG TABLET PO SCH (08:47)
[2019-07-13] MEDS: METOPROLOL SUCCINATE 25 MG ER TABLET PO SCH (08:47)
[2019-07-13] MEDS: CALCIUM OYSTER SHELL 500 MG TABLET PO SCH (08:47)
[2019-07-13] MEDS: LORATADINE 10 MG TABLET PO SCH (08:47)
[2019-07-13] MEDS: MULTIVITAMINS WITH MINERALS, THERAPEUTIC TABLET PO SCH (08:47)
[2019-07-13 09:16] VITALS: BP 158/63
[2019-07-13 16:57] VITALS: BP 157/74
[2019-07-13] MEDS: LURASIDONE HCL 60 MG TABLET PO SCH (17:30)
[2019-07-14 03:49] VITALS: BP 159/81
[2019-07-14] MEDS: LEVOTHYROXINE SODIUM 25 MCG TABLET PO SCH (06:42)
[2019-07-14] MEDS: LURASIDONE HCL 20 MG TABLET PO SCH (06:42)
[2019-07-14] MEDS: CALCIUM OYSTER SHELL 500 MG TABLET PO SCH (09:18)
[2019-07-14] MEDS: AmLODIPine BESYLATE 5 MG TABLET PO SCH (09:18)
[2019-07-14] MEDS: MULTIVITAMINS WITH MINERALS, THERAPEUTIC TABLET PO SCH (09:18)
[2019-07-14] MEDS: VALSARTAN 160 MG TABLET PO SCH (09:18)
[2019-07-14] MEDS: LORATADINE 10 MG TABLET PO SCH (09:18)
[2019-07-14] MEDS: METOPROLOL SUCCINATE 25 MG ER TABLET PO SCH (09:18)
[2019-07-14 09:55] VITALS: BP 165/67
[2019-07-14] MEDS: LURASIDONE HCL 60 MG TABLET PO SCH (17:19)
[2019-07-14 19:36] VITALS: BP 164/71
[2019-07-15 02:20] VITALS: BP 152/65
[2019-07-15] MEDS: LEVOTHYROXINE SODIUM 25 MCG TABLET PO SCH (06:31)
[2019-07-15] MEDS: LURASIDONE HCL 20 MG TABLET PO SCH (06:31)
[2019-07-15] MEDS: CALCIUM OYSTER SHELL 500 MG TABLET PO SCH (08:34)
[2019-07-15] MEDS: AmLODIPine BESYLATE 5 MG TABLET PO SCH (08:34)
[2019-07-15] MEDS: LORATADINE 10 MG TABLET PO SCH (08:34)
[2019-07-15] MEDS: METOPROLOL SUCCINATE 25 MG ER TABLET PO SCH (08:34)
[2019-07-15] MEDS: MULTIVITAMINS WITH MINERALS, THERAPEUTIC TABLET PO SCH (08:34)
[2019-07-15] MEDS: VALSARTAN 160 MG TABLET PO SCH (08:35)
[2019-07-15 09:13] VITALS: BP 155/62
[2019-07-15 16:00] VITALS: BP 149/70
[2019-07-15] MEDS: LURASIDONE HCL 60 MG TABLET PO SCH (16:37)
[2019-07-16 04:11] VITALS: BP 165/78
[2019-07-16] MEDS: LURASIDONE HCL 20 MG TABLET PO SCH (06:37)
[2019-07-16] MEDS: LEVOTHYROXINE SODIUM 25 MCG TABLET PO SCH (06:37)
[2019-07-16 08:27] VITALS: BP 169/63
[2019-07-16 09:28] VITALS: BP 172/62
[2019-07-16] MEDS: CALCIUM OYSTER SHELL 500 MG TABLET PO SCH (09:31)
[2019-07-16] MEDS: AmLODIPine BESYLATE 5 MG TABLET PO SCH (09:32)
[2019-07-16] MEDS: VALSARTAN 160 MG TABLET PO SCH (09:32)
[2019-07-16] MEDS: LORATADINE 10 MG TABLET PO SCH (09:32)
[2019-07-16] MEDS: METOPROLOL SUCCINATE 25 MG ER TABLET PO SCH (09:32)
[2019-07-16] MEDS: MULTIVITAMINS WITH MINERALS, THERAPEUTIC TABLET PO SCH (09:32)
[2019-07-16] MEDS: LURASIDONE HCL 60 MG TABLET PO SCH (16:47)
[2019-07-16 20:17] VITALS: BP 153/62
[2019-07-17] MEDS: CloNIDine HCL 0.1 MG TABLET PO PRN (00:57)
[2019-07-17] MEDS: ACETAMINOPHEN 325 MG TABLET PO PRN (00:57)
[2019-07-17 01:04] VITALS: BP 188/66
[2019-07-17 01:57] VITALS: BP 129/52
[2019-07-17] MEDS: LURASIDONE HCL 20 MG TABLET PO SCH (06:39)
[2019-07-17] MEDS: LEVOTHYROXINE SODIUM 25 MCG TABLET PO SCH (06:39)
[2019-07-17 08:58] VITALS: BP 161/72
[2019-07-17] MEDS: CALCIUM OYSTER SHELL 500 MG TABLET PO SCH (09:04)
[2019-07-17] MEDS: MULTIVITAMINS WITH MINERALS, THERAPEUTIC TABLET PO SCH (09:05)
[2019-07-17] MEDS: AmLODIPine BESYLATE 5 MG TABLET PO SCH (09:05)
[2019-07-17] MEDS: VALSARTAN 160 MG TABLET PO SCH (09:05)
[2019-07-17] MEDS: LORATADINE 10 MG TABLET PO SCH (09:05)
[2019-07-17] MEDS: METOPROLOL SUCCINATE 25 MG ER TABLET PO SCH (09:05)
[2019-07-17 09:45] VITALS: BP 137/71
[2019-07-17] MEDS: LURASIDONE HCL 60 MG TABLET PO SCH (16:33)
[2019-07-17 18:02] VITALS: BP 162/66
[2019-07-18 03:37] VITALS: BP 149/72
[2019-07-18] MEDS: ACETAMINOPHEN 325 MG TABLET PO PRN (03:40)
[2019-07-18] MEDS: LEVOTHYROXINE SODIUM 25 MCG TABLET PO SCH (06:53)
[2019-07-18] MEDS: LURASIDONE HCL 20 MG TABLET PO SCH (06:53)
[2019-07-18 08:00] VITALS: BP 170/66
[2019-07-18 08:40] VITALS: BP 148/60
[2019-07-18] MEDS: METOPROLOL SUCCINATE 25 MG ER TABLET PO SCH (08:42)
[2019-07-18] MEDS: MULTIVITAMINS WITH MINERALS, THERAPEUTIC TABLET PO SCH (08:45)
[2019-07-18] MEDS: AmLODIPine BESYLATE 5 MG TABLET PO SCH (08:45)
[2019-07-18] MEDS: LORATADINE 10 MG TABLET PO SCH (08:46)
[2019-07-18] MEDS: VALSARTAN 160 MG TABLET PO SCH (08:46)
[2019-07-18] MEDS: CALCIUM OYSTER SHELL 500 MG TABLET PO SCH (08:46)
[2019-07-18 08:53] VITALS: BP 170/66
[2019-07-18] MEDS: GuaiFENesin/D-METHORPHAN [SUGAR-FREE] 200-20MG/10 ML SYRUP UDCUP PO PRN ×2 (14:06→19:46)
[2019-07-18] MEDS: LURASIDONE HCL 60 MG TABLET PO SCH (16:24)
[2019-07-18 18:52] VITALS: BP 155/53
[2019-07-19 05:31] VITALS: BP 140/76
[2019-07-19] MEDS: LURASIDONE HCL 20 MG TABLET PO SCH (06:42)
[2019-07-19] MEDS: LEVOTHYROXINE SODIUM 25 MCG TABLET PO SCH (06:42)
[2019-07-19] MEDS: MULTIVITAMINS WITH MINERALS, THERAPEUTIC TABLET PO SCH (09:18)
[2019-07-19] MEDS: LORATADINE 10 MG TABLET PO SCH (09:18)
[2019-07-19] MEDS: CALCIUM OYSTER SHELL 500 MG TABLET PO SCH (09:18)
[2019-07-19] MEDS: AmLODIPine BESYLATE 5 MG TABLET PO SCH (09:18)
[2019-07-19] MEDS: METOPROLOL SUCCINATE 25 MG ER TABLET PO SCH (09:18)
[2019-07-19] MEDS: VALSARTAN 160 MG TABLET PO SCH (09:19)
[2019-07-19 09:37] VITALS: BP 178/70
[2019-07-19] MEDS: GuaiFENesin/D-METHORPHAN [SUGAR-FREE] 200-20MG/10 ML SYRUP UDCUP PO PRN (16:02)
[2019-07-19] MEDS: LURASIDONE HCL 60 MG TABLET PO SCH (16:53)
[2019-07-19 20:07] VITALS: BP 165/60
[2019-07-20 04:14] VITALS: BP 164/77
[2019-07-20] MEDS: LURASIDONE HCL 20 MG TABLET PO SCH (06:35)
[2019-07-20] MEDS: LEVOTHYROXINE SODIUM 25 MCG TABLET PO SCH (06:35)
[2019-07-20 09:00] VITALS: BP 148/82
[2019-07-20] MEDS: CALCIUM OYSTER SHELL 500 MG TABLET PO SCH (09:12)
[2019-07-20] MEDS: VALSARTAN 160 MG TABLET PO SCH (09:12)
[2019-07-20] MEDS: AmLODIPine BESYLATE 5 MG TABLET PO SCH (09:12)
[2019-07-20] MEDS: METOPROLOL SUCCINATE 25 MG ER TABLET PO SCH (09:12)
[2019-07-20] MEDS: LORATADINE 10 MG TABLET PO SCH (09:12)
[2019-07-20] MEDS: MULTIVITAMINS WITH MINERALS, THERAPEUTIC TABLET PO SCH (09:12)
[2019-07-20 16:20] VITALS: BP 159/68
[2019-07-20] MEDS: LURASIDONE HCL 60 MG TABLET PO SCH (16:39)
[2019-07-21] MEDS: LURASIDONE HCL 20 MG TABLET PO SCH (06:34)
[2019-07-21] MEDS: LEVOTHYROXINE SODIUM 25 MCG TABLET PO SCH (06:35)
[2019-07-21 09:07] VITALS: BP 155/66
[2019-07-21] MEDS: VALSARTAN 160 MG TABLET PO SCH (09:32)
[2019-07-21] MEDS: LORATADINE 10 MG TABLET PO SCH (09:32)
[2019-07-21] MEDS: MULTIVITAMINS WITH MINERALS, THERAPEUTIC TABLET PO SCH (09:33)
[2019-07-21] MEDS: METOPROLOL SUCCINATE 25 MG ER TABLET PO SCH (09:33)
[2019-07-21] MEDS: CALCIUM OYSTER SHELL 500 MG TABLET PO SCH (09:33)
[2019-07-21] MEDS: AmLODIPine BESYLATE 5 MG TABLET PO SCH (09:33)
[2019-07-21] MEDS: LURASIDONE HCL 60 MG TABLET PO SCH (17:29)
[2019-07-21 17:48] VITALS: BP 157/46
[2019-07-22 01:59] VITALS: BP 160/72
[2019-07-22] MEDS: LEVOTHYROXINE SODIUM 25 MCG TABLET PO SCH (06:42)
[2019-07-22] MEDS: LURASIDONE HCL 20 MG TABLET PO SCH (06:43)
[2019-07-22 08:00] VITALS: BP 147/64
[2019-07-22] MEDS: METOPROLOL SUCCINATE 25 MG ER TABLET PO SCH (08:59)
[2019-07-22] MEDS: AmLODIPine BESYLATE 5 MG TABLET PO SCH (08:59)
[2019-07-22] MEDS: VALSARTAN 160 MG TABLET PO SCH (08:59)
[2019-07-22] MEDS: MULTIVITAMINS WITH MINERALS, THERAPEUTIC TABLET PO SCH (08:59)
[2019-07-22] MEDS: CALCIUM OYSTER SHELL 500 MG TABLET PO SCH (08:59)
[2019-07-22] MEDS: LORATADINE 10 MG TABLET PO SCH (08:59)
[2019-07-22] MEDS: LURASIDONE HCL 60 MG TABLET PO SCH (16:45)
[2019-07-22 17:58] VITALS: BP 153/66
[2019-07-23 00:01] VITALS: BP 162/55
[2019-07-23] MEDS: ACETAMINOPHEN 325 MG TABLET PO PRN (00:08)
[2019-07-23] MEDS: LEVOTHYROXINE SODIUM 25 MCG TABLET PO SCH (06:41)
[2019-07-23] MEDS: LURASIDONE HCL 20 MG TABLET PO SCH (06:41)
[2019-07-23 08:30] VITALS: BP 163/69
[2019-07-23] MEDS: VALSARTAN 160 MG TABLET PO SCH (10:01)
[2019-07-23] MEDS: LORATADINE 10 MG TABLET PO SCH (10:01)
[2019-07-23] MEDS: METOPROLOL SUCCINATE 25 MG ER TABLET PO SCH (10:01)
[2019-07-23] MEDS: MULTIVITAMINS WITH MINERALS, THERAPEUTIC TABLET PO SCH (10:01)
[2019-07-23] MEDS: CALCIUM OYSTER SHELL 500 MG TABLET PO SCH (10:01)
[2019-07-23] MEDS: AmLODIPine BESYLATE 5 MG TABLET PO SCH (10:01)
[2019-07-23] MEDS: PETROLATUM,WHITE 28 GM JELLY TP PRN (10:03)
[2019-07-23] MEDS: LURASIDONE HCL 60 MG TABLET PO SCH (17:08)
[2019-07-23] MEDS: GuaiFENesin/D-METHORPHAN [SUGAR-FREE] 200-20MG/10 ML SYRUP UDCUP PO PRN (17:08)
[2019-07-23 18:36] VITALS: BP 159/74
[2019-07-24] MEDS: LURASIDONE HCL 20 MG TABLET PO SCH (06:44)
[2019-07-24] MEDS: LEVOTHYROXINE SODIUM 25 MCG TABLET PO SCH (06:44)
[2019-07-24] MEDS: VALSARTAN 160 MG TABLET PO SCH (10:10)
[2019-07-24] MEDS: AmLODIPine BESYLATE 5 MG TABLET PO SCH (10:10)
[2019-07-24] MEDS: LORATADINE 10 MG TABLET PO SCH (10:10)
[2019-07-24] MEDS: MULTIVITAMINS WITH MINERALS, THERAPEUTIC TABLET PO SCH (10:11)
[2019-07-24] MEDS: CALCIUM OYSTER SHELL 500 MG TABLET PO SCH (10:11)
[2019-07-24] MEDS: METOPROLOL SUCCINATE 25 MG ER TABLET PO SCH (10:11)
[2019-07-24 10:50] VITALS: BP 149/75
[2019-07-24] MEDS: LURASIDONE HCL 60 MG TABLET PO SCH (16:18)
[2019-07-24 20:06] VITALS: BP 154/69
[2019-07-24] MEDS: GuaiFENesin/D-METHORPHAN [SUGAR-FREE] 200-20MG/10 ML SYRUP UDCUP PO PRN (23:47)
[2019-07-25 03:05] VITALS: BP 144/71
[2019-07-25] MEDS: LEVOTHYROXINE SODIUM 25 MCG TABLET PO SCH (06:41)
[2019-07-25] MEDS: LURASIDONE HCL 20 MG TABLET PO SCH (06:41)
[2019-07-25 08:30] VITALS: BP 161/59
[2019-07-25] MEDS: MULTIVITAMINS WITH MINERALS, THERAPEUTIC TABLET PO SCH (08:31)
[2019-07-25] MEDS: CALCIUM OYSTER SHELL 500 MG TABLET PO SCH (08:31)
[2019-07-25] MEDS: LORATADINE 10 MG TABLET PO SCH (08:31)
[2019-07-25] MEDS: AmLODIPine BESYLATE 5 MG TABLET PO SCH (08:31)
[2019-07-25] MEDS: METOPROLOL SUCCINATE 25 MG ER TABLET PO SCH (08:31)
[2019-07-25] MEDS: VALSARTAN 160 MG TABLET PO SCH (08:32)
[2019-07-25] MEDS: SODIUM CHLORIDE 0.65% 44 ML NASAL SPRAY NASAL PRN (11:23)
[2019-07-25] MEDS: LURASIDONE HCL 60 MG TABLET PO SCH (16:54)
[2019-07-25 19:19] VITALS: BP 136/67
[2019-07-25] MEDS: DIVALPROEX SODIUM 500 MG ER TABLET PO SCH (20:45)
[2019-07-26] MEDS: LEVOTHYROXINE SODIUM 25 MCG TABLET PO SCH (06:33)
[2019-07-26] MEDS: LURASIDONE HCL 40 MG TABLET PO SCH (06:33)
[2019-07-26 08:30] VITALS: BP 165/76
[2019-07-26] MEDS: VALSARTAN 160 MG TABLET PO SCH (10:09)
[2019-07-26] MEDS: CALCIUM OYSTER SHELL 500 MG TABLET PO SCH (10:09)
[2019-07-26] MEDS: MULTIVITAMINS WITH MINERALS, THERAPEUTIC TABLET PO SCH (10:09)
[2019-07-26 10:10] VITALS: BP 162/81
[2019-07-26] MEDS: METOPROLOL SUCCINATE 25 MG ER TABLET PO SCH (10:10)
[2019-07-26] MEDS: AmLODIPine BESYLATE 5 MG TABLET PO SCH (10:10)
[2019-07-26] MEDS: LORATADINE 10 MG TABLET PO SCH (10:10)
[2019-07-26] MEDS: IBUPROFEN 400 MG TABLET PO PRN (10:10)
[2019-07-26] MEDS: SODIUM CHLORIDE 0.65% 44 ML NASAL SPRAY NASAL PRN (11:23)
[2019-07-26] MEDS: LURASIDONE HCL 60 MG TABLET PO SCH (17:09)
[2019-07-26 19:51] VITALS: BP 155/65
[2019-07-26] MEDS: DIVALPROEX SODIUM 500 MG ER TABLET PO SCH (21:03)
[2019-07-27] MEDS: LURASIDONE HCL 40 MG TABLET PO SCH (07:00)
[2019-07-27] MEDS: LEVOTHYROXINE SODIUM 25 MCG TABLET PO SCH (07:00)
[2019-07-27] MEDS: MULTIVITAMINS WITH MINERALS, THERAPEUTIC TABLET PO SCH (09:21)
[2019-07-27] MEDS: LORATADINE 10 MG TABLET PO SCH (09:22)
[2019-07-27] MEDS: AmLODIPine BESYLATE 5 MG TABLET PO SCH (09:22)
[2019-07-27] MEDS: METOPROLOL SUCCINATE 25 MG ER TABLET PO SCH (09:22)
[2019-07-27] MEDS: VALSARTAN 160 MG TABLET PO SCH (09:22)
[2019-07-27] MEDS: CALCIUM OYSTER SHELL 500 MG TABLET PO SCH (09:22)
[2019-07-27] MEDS: SODIUM CHLORIDE 0.65% 44 ML NASAL SPRAY NASAL PRN ×2 (12:28→14:36)
[2019-07-27 12:33] VITALS: BP 160/73
[2019-07-27 16:00] VITALS: BP 157/67
[2019-07-27] MEDS: LURASIDONE HCL 60 MG TABLET PO SCH (17:30)
[2019-07-27] MEDS: DIVALPROEX SODIUM 500 MG ER TABLET PO SCH (21:00)
[2019-07-28 03:46] VITALS: BP 149/83
[2019-07-28] MEDS: LURASIDONE HCL 40 MG TABLET PO SCH (06:46)
[2019-07-28] MEDS: LEVOTHYROXINE SODIUM 25 MCG TABLET PO SCH (06:46)
[2019-07-28 08:00] VITALS: BP 167/99
[2019-07-28] MEDS: VALSARTAN 160 MG TABLET PO SCH (08:36)
[2019-07-28] MEDS: AmLODIPine BESYLATE 5 MG TABLET PO SCH (08:36)
[2019-07-28] MEDS: LORATADINE 10 MG TABLET PO SCH (08:36)
[2019-07-28] MEDS: METOPROLOL SUCCINATE 25 MG ER TABLET PO SCH (08:36)
[2019-07-28] MEDS: MULTIVITAMINS WITH MINERALS, THERAPEUTIC TABLET PO SCH (08:51)
[2019-07-28] MEDS: CALCIUM OYSTER SHELL 500 MG TABLET PO SCH (08:51)
[2019-07-28] MEDS: LURASIDONE HCL 60 MG TABLET PO SCH (16:53)
[2019-07-28 16:57] VITALS: BP 163/66
[2019-07-28] MEDS: DIVALPROEX SODIUM 500 MG ER TABLET PO SCH (20:34)
[2019-07-29] MEDS: SODIUM CHLORIDE 0.65% 44 ML NASAL SPRAY NASAL PRN (01:13)
[2019-07-29 03:19] VITALS: BP 151/69
[2019-07-29] MEDS: ACETAMINOPHEN 325 MG TABLET PO PRN (03:19)
[2019-07-29] MEDS: LEVOTHYROXINE SODIUM 25 MCG TABLET PO SCH (06:41)
[2019-07-29] MEDS ORDERED: LURASIDONE HCL 80 MG TABLET PO SCH (07:30)
[2019-07-29] MEDS: CALCIUM OYSTER SHELL 500 MG TABLET PO SCH (08:21)
[2019-07-29] MEDS: VALSARTAN 160 MG TABLET PO SCH (08:21)
[2019-07-29] MEDS: MULTIVITAMINS WITH MINERALS, THERAPEUTIC TABLET PO SCH (08:21)
[2019-07-29] MEDS: AmLODIPine BESYLATE 5 MG TABLET PO SCH (08:21)
[2019-07-29] MEDS: OLANZapine 5 MG RAPDIS TABLET PO PRN (08:21)
[2019-07-29] MEDS: LORATADINE 10 MG TABLET PO SCH (08:21)
[2019-07-29] MEDS: METOPROLOL SUCCINATE 25 MG ER TABLET PO SCH (08:21)
[2019-07-29 08:24] VITALS: BP 151/72
[2019-07-29 17:03] VITALS: BP 140/81
[2019-07-29] MEDS: LURASIDONE HCL 60 MG TABLET PO SCH (17:13)
[2019-07-29] MEDS: DIVALPROEX SODIUM 500 MG ER TABLET PO SCH (21:45)
[2019-07-30 05:37] VITALS: BP 150/76
[2019-07-30] MEDS: LEVOTHYROXINE SODIUM 25 MCG TABLET PO SCH (06:53)
[2019-07-30] MEDS: LURASIDONE HCL 40 MG TABLET PO SCH (06:53)
[2019-07-30 09:21] VITALS: BP 156/82
[2019-07-30] MEDS: VALSARTAN 160 MG TABLET PO SCH (09:40)
[2019-07-30] MEDS: METOPROLOL SUCCINATE 25 MG ER TABLET PO SCH (09:40)
[2019-07-30] MEDS: AmLODIPine BESYLATE 5 MG TABLET PO SCH (09:40)
[2019-07-30] MEDS: CALCIUM OYSTER SHELL 500 MG TABLET PO SCH (09:40)
[2019-07-30] MEDS: MULTIVITAMINS WITH MINERALS, THERAPEUTIC TABLET PO SCH (09:41)
[2019-07-30] MEDS: LORATADINE 10 MG TABLET PO SCH (09:41)
[2019-07-30] MEDS: OLANZapine 5 MG RAPDIS TABLET PO PRN (09:41)
[2019-07-30 16:30] VITALS: BP 144/70
[2019-07-30] MEDS: LURASIDONE HCL 60 MG TABLET PO SCH (17:30)
[2019-07-30] MEDS: DIVALPROEX SODIUM 500 MG ER TABLET PO SCH (20:32)
[2019-07-31 02:02] VITALS: BP 139/80
[2019-07-31] MEDS: LEVOTHYROXINE SODIUM 25 MCG TABLET PO SCH (06:53)
[2019-07-31] MEDS: LURASIDONE HCL 40 MG TABLET PO SCH (06:53)
[2019-07-31 08:30] VITALS: BP 159/94
[2019-07-31] MEDS: CALCIUM OYSTER SHELL 500 MG TABLET PO SCH (08:48)
[2019-07-31] MEDS: LORATADINE 10 MG TABLET PO SCH (08:48)
[2019-07-31] MEDS: AmLODIPine BESYLATE 5 MG TABLET PO SCH (08:48)
[2019-07-31] MEDS: MULTIVITAMINS WITH MINERALS, THERAPEUTIC TABLET PO SCH (08:48)
[2019-07-31] MEDS: VALSARTAN 160 MG TABLET PO SCH (08:48)
[2019-07-31] MEDS: METOPROLOL SUCCINATE 25 MG ER TABLET PO SCH (08:49)
[2019-07-31] MEDS: LURASIDONE HCL 60 MG TABLET PO SCH (16:59)
[2019-07-31 17:12] VITALS: BP 167/78
[2019-07-31] MEDS: DIVALPROEX SODIUM 500 MG ER TABLET PO SCH (20:15)
[2019-08-01 01:39] VITALS: BP 159/80
[2019-08-01] MEDS: LURASIDONE HCL 40 MG TABLET PO SCH (06:57)
[2019-08-01] MEDS: LEVOTHYROXINE SODIUM 25 MCG TABLET PO SCH (06:57)
[2019-08-01] MEDS: LORATADINE 10 MG TABLET PO SCH (08:37)
[2019-08-01] MEDS: CALCIUM OYSTER SHELL 500 MG TABLET PO SCH (08:37)
[2019-08-01] MEDS: AmLODIPine BESYLATE 5 MG TABLET PO SCH (08:37)
[2019-08-01] MEDS: METOPROLOL SUCCINATE 25 MG ER TABLET PO SCH (08:37)
[2019-08-01] MEDS: MULTIVITAMINS WITH MINERALS, THERAPEUTIC TABLET PO SCH (08:37)
[2019-08-01] MEDS: VALSARTAN 160 MG TABLET PO SCH (08:38)
[2019-08-01 08:52] VITALS: BP 166/79
[2019-08-01] MEDS: SODIUM CHLORIDE 0.65% 44 ML NASAL SPRAY NASAL PRN (14:59)
[2019-08-01 16:31] VITALS: BP 153/72
[2019-08-01 16:39] VITALS: BP 153/72
[2019-08-01] MEDS: LURASIDONE HCL 60 MG TABLET PO SCH ×2 (17:30→17:44)
[2019-08-01] MEDS: DIVALPROEX SODIUM 500 MG ER TABLET PO SCH (20:51)
[2019-08-02] MEDS: LEVOTHYROXINE SODIUM 25 MCG TABLET PO SCH (06:48)
[2019-08-02 08:39] VITALS: BP 163/81
[2019-08-02] MEDS: AmLODIPine BESYLATE 5 MG TABLET PO SCH (09:01)
[2019-08-02] MEDS: MULTIVITAMINS WITH MINERALS, THERAPEUTIC TABLET PO SCH (09:01)
[2019-08-02] MEDS: LORATADINE 10 MG TABLET PO SCH (09:01)
[2019-08-02] MEDS: VALSARTAN 160 MG TABLET PO SCH (09:01)
[2019-08-02] MEDS: CALCIUM OYSTER SHELL 500 MG TABLET PO SCH (09:01)
[2019-08-02] MEDS: METOPROLOL SUCCINATE 25 MG ER TABLET PO SCH (09:01)
[2019-08-02] MEDS: SODIUM CHLORIDE 0.65% 44 ML NASAL SPRAY NASAL PRN (16:20)
[2019-08-02] MEDS: LURASIDONE HCL 80 MG TABLET PO SCH (16:21)
[2019-08-02 19:31] VITALS: BP 147/70
[2019-08-02] MEDS: DIVALPROEX SODIUM 500 MG ER TABLET PO SCH ×2 (20:06→20:22)
[2019-08-03] MEDS: SODIUM CHLORIDE 0.65% 44 ML NASAL SPRAY NASAL PRN ×2 (01:15→08:34)
[2019-08-03 01:46] VITALS: BP 155/82
[2019-08-03] MEDS: LEVOTHYROXINE SODIUM 25 MCG TABLET PO SCH (06:56)
[2019-08-03] MEDS: MULTIVITAMINS WITH MINERALS, THERAPEUTIC TABLET PO SCH (08:33)
[2019-08-03] MEDS: CALCIUM OYSTER SHELL 500 MG TABLET PO SCH (08:33)
[2019-08-03] MEDS: AmLODIPine BESYLATE 5 MG TABLET PO SCH (08:33)
[2019-08-03] MEDS: LORATADINE 10 MG TABLET PO SCH (08:33)
[2019-08-03] MEDS: VALSARTAN 160 MG TABLET PO SCH (08:33)
[2019-08-03] MEDS: METOPROLOL SUCCINATE 25 MG ER TABLET PO SCH (08:33)
[2019-08-03 10:16] VITALS: BP 143/70
[2019-08-03 16:27] VITALS: BP 142/57
[2019-08-03] MEDS: LURASIDONE HCL 80 MG TABLET PO SCH (17:30)
[2019-08-03] MEDS: DIVALPROEX SODIUM 500 MG ER TABLET PO SCH (21:00)
[2019-08-04 04:12] VITALS: BP 146/65
[2019-08-04] MEDS: LEVOTHYROXINE SODIUM 25 MCG TABLET PO SCH (07:02)
[2019-08-04] MEDS: CALCIUM OYSTER SHELL 500 MG TABLET PO SCH (09:18)
[2019-08-04] MEDS: VALSARTAN 160 MG TABLET PO SCH (09:18)
[2019-08-04] MEDS: AmLODIPine BESYLATE 5 MG TABLET PO SCH (09:18)
[2019-08-04] MEDS: MULTIVITAMINS WITH MINERALS, THERAPEUTIC TABLET PO SCH (09:18)
[2019-08-04] MEDS: METOPROLOL SUCCINATE 25 MG ER TABLET PO SCH (09:18)
[2019-08-04] MEDS: LORATADINE 10 MG TABLET PO SCH (09:21)
[2019-08-04 10:02] VITALS: BP 148/56
[2019-08-04] MEDS: SODIUM CHLORIDE 0.65% 44 ML NASAL SPRAY NASAL PRN (12:21)
[2019-08-04] MEDS: PETROLATUM,WHITE 28 GM JELLY TP PRN (12:21)
[2019-08-04] MEDS: LURASIDONE HCL 80 MG TABLET PO SCH (17:15)
[2019-08-04 21:01] VITALS: BP 158/65
[2019-08-05] MEDS: LEVOTHYROXINE SODIUM 25 MCG TABLET PO SCH (06:45)
[2019-08-05] MEDS: METOPROLOL SUCCINATE 25 MG ER TABLET PO SCH (08:30)
[2019-08-05] MEDS: CALCIUM OYSTER SHELL 500 MG TABLET PO SCH (08:30)
[2019-08-05] MEDS: MULTIVITAMINS WITH MINERALS, THERAPEUTIC TABLET PO SCH (08:30)
[2019-08-05] MEDS: VALSARTAN 160 MG TABLET PO SCH (08:30)
[2019-08-05] MEDS: AmLODIPine BESYLATE 5 MG TABLET PO SCH (08:30)
[2019-08-05] MEDS: LORATADINE 10 MG TABLET PO SCH (08:31)
[2019-08-05] MEDS: SODIUM CHLORIDE 0.65% 44 ML NASAL SPRAY NASAL PRN (08:35)
[2019-08-05 08:55] VITALS: BP 167/79
[2019-08-05] MEDS: LURASIDONE HCL 80 MG TABLET PO SCH (16:59)
[2019-08-05 17:18] VITALS: BP 136/64
[2019-08-06 05:01] VITALS: BP 150/76
[2019-08-06] MEDS: LEVOTHYROXINE SODIUM 25 MCG TABLET PO SCH (06:46)
[2019-08-06 08:57] VITALS: BP 159/76
[2019-08-06] MEDS: LORATADINE 10 MG TABLET PO SCH (09:08)
[2019-08-06] MEDS: VALSARTAN 160 MG TABLET PO SCH (09:08)
[2019-08-06] MEDS: AmLODIPine BESYLATE 5 MG TABLET PO SCH (09:08)
[2019-08-06] MEDS: MULTIVITAMINS WITH MINERALS, THERAPEUTIC TABLET PO SCH (09:08)
[2019-08-06] MEDS: METOPROLOL SUCCINATE 25 MG ER TABLET PO SCH (09:08)
[2019-08-06] MEDS: CALCIUM OYSTER SHELL 500 MG TABLET PO SCH (09:08)
[2019-08-06] MEDS: LURASIDONE HCL 80 MG TABLET PO SCH (17:51)
[2019-08-06 20:05] VITALS: BP 151/65
[2019-08-07] MEDS: LEVOTHYROXINE SODIUM 25 MCG TABLET PO SCH (06:39)
[2019-08-07] MEDS: AmLODIPine BESYLATE 5 MG TABLET PO SCH (08:56)
[2019-08-07] MEDS: MULTIVITAMINS WITH MINERALS, THERAPEUTIC TABLET PO SCH (08:57)
[2019-08-07] MEDS: LORATADINE 10 MG TABLET PO SCH (08:57)
[2019-08-07] MEDS: VALSARTAN 160 MG TABLET PO SCH (08:57)
[2019-08-07] MEDS: METOPROLOL SUCCINATE 25 MG ER TABLET PO SCH (08:57)
[2019-08-07] MEDS: CALCIUM OYSTER SHELL 500 MG TABLET PO SCH (08:57)
[2019-08-07] MEDS: SODIUM CHLORIDE 0.65% 44 ML NASAL SPRAY NASAL PRN (09:03)
[2019-08-07 09:20] VITALS: BP 158/89
[2019-08-07] MEDS: LURASIDONE HCL 60 MG TABLET PO SCH (16:38)
[2019-08-07 17:14] VITALS: BP 154/68
[2019-08-08 04:49] VITALS: BP 159/86
[2019-08-08] MEDS: SODIUM CHLORIDE 0.65% 44 ML NASAL SPRAY NASAL PRN ×2 (04:51→17:40)
[2019-08-08] MEDS: LEVOTHYROXINE SODIUM 25 MCG TABLET PO SCH (06:45)
[2019-08-08] MEDS: VALSARTAN 160 MG TABLET PO SCH (09:00)
[2019-08-08] MEDS: CALCIUM OYSTER SHELL 500 MG TABLET PO SCH (09:05)
[2019-08-08] MEDS: MULTIVITAMINS WITH MINERALS, THERAPEUTIC TABLET PO SCH (09:06)
[2019-08-08] MEDS: METOPROLOL SUCCINATE 25 MG ER TABLET PO SCH (09:06)
[2019-08-08] MEDS: AmLODIPine BESYLATE 5 MG TABLET PO SCH (09:06)
[2019-08-08] MEDS: LORATADINE 10 MG TABLET PO SCH (09:07)
[2019-08-08 12:37] VITALS: BP 149/50
[2019-08-08 16:00] VITALS: BP 158/67
[2019-08-08] MEDS: LURASIDONE HCL 60 MG TABLET PO SCH (17:39)
[2019-08-09] MEDS: SODIUM CHLORIDE 0.65% 44 ML NASAL SPRAY NASAL PRN ×3 (01:54→19:51)
[2019-08-09 02:15] VITALS: BP 163/73
[2019-08-09] MEDS: LEVOTHYROXINE SODIUM 25 MCG TABLET PO SCH (06:34)
[2019-08-09] MEDS: CALCIUM OYSTER SHELL 500 MG TABLET PO SCH (09:20)
[2019-08-09] MEDS: MULTIVITAMINS WITH MINERALS, THERAPEUTIC TABLET PO SCH (09:20)
[2019-08-09] MEDS: VALSARTAN 160 MG TABLET PO SCH (09:21)
[2019-08-09] MEDS: METOPROLOL SUCCINATE 25 MG ER TABLET PO SCH (09:21)
[2019-08-09] MEDS: AmLODIPine BESYLATE 5 MG TABLET PO SCH (09:21)
[2019-08-09] MEDS: LORATADINE 10 MG TABLET PO SCH (09:21)
[2019-08-09 10:13] VITALS: BP 160/64
[2019-08-09 16:42] VITALS: BP 135/88
[2019-08-09] MEDS: LURASIDONE HCL 60 MG TABLET PO SCH (17:30)
[2019-08-10 04:05] VITALS: BP 149/66
[2019-08-10] MEDS: LEVOTHYROXINE SODIUM 25 MCG TABLET PO SCH (06:46)
[2019-08-10] MEDS: CALCIUM OYSTER SHELL 500 MG TABLET PO SCH (08:20)
[2019-08-10] MEDS: METOPROLOL SUCCINATE 25 MG ER TABLET PO SCH (08:20)
[2019-08-10] MEDS: MULTIVITAMINS WITH MINERALS, THERAPEUTIC TABLET PO SCH (08:20)
[2019-08-10] MEDS: AmLODIPine BESYLATE 5 MG TABLET PO SCH (08:20)
[2019-08-10] MEDS: VALSARTAN 160 MG TABLET PO SCH (08:20)
[2019-08-10] MEDS: SODIUM CHLORIDE 0.65% 44 ML NASAL SPRAY NASAL PRN (08:20)
[2019-08-10] MEDS: LORATADINE 10 MG TABLET PO SCH (08:20)
[2019-08-10 11:07] VITALS: BP 168/88
[2019-08-10 16:37] VITALS: BP 139/58
[2019-08-10] MEDS: LURASIDONE HCL 60 MG TABLET PO SCH (16:37)
[2019-08-11 03:32] VITALS: BP 149/63
[2019-08-11] MEDS: LEVOTHYROXINE SODIUM 25 MCG TABLET PO SCH (06:55)
[2019-08-11] MEDS: LORATADINE 10 MG TABLET PO SCH (08:16)
[2019-08-11] MEDS: CALCIUM OYSTER SHELL 500 MG TABLET PO SCH (08:16)
[2019-08-11] MEDS: VALSARTAN 160 MG TABLET PO SCH (08:17)
[2019-08-11] MEDS: METOPROLOL SUCCINATE 25 MG ER TABLET PO SCH (08:17)
[2019-08-11] MEDS: AmLODIPine BESYLATE 5 MG TABLET PO SCH (08:17)
[2019-08-11] MEDS: MULTIVITAMINS WITH MINERALS, THERAPEUTIC TABLET PO SCH (08:17)
[2019-08-11 09:35] VITALS: BP 136/80
[2019-08-11 16:25] VITALS: BP 155/71
[2019-08-11] MEDS: LURASIDONE HCL 60 MG TABLET PO SCH (16:54)
[2019-08-11] MEDS: SODIUM CHLORIDE 0.65% 44 ML NASAL SPRAY NASAL PRN (18:14)
[2019-08-12] MEDS: LEVOTHYROXINE SODIUM 25 MCG TABLET PO SCH (06:23)
[2019-08-12] MEDS: LORATADINE 10 MG TABLET PO SCH (09:52)
[2019-08-12] MEDS: AmLODIPine BESYLATE 5 MG TABLET PO SCH (09:52)
[2019-08-12] MEDS: METOPROLOL SUCCINATE 25 MG ER TABLET PO SCH (09:52)
[2019-08-12] MEDS: MULTIVITAMINS WITH MINERALS, THERAPEUTIC TABLET PO SCH (09:52)
[2019-08-12] MEDS: SODIUM CHLORIDE 0.65% 44 ML NASAL SPRAY NASAL PRN (09:52)
[2019-08-12] MEDS: VALSARTAN 160 MG TABLET PO SCH (09:53)
[2019-08-12] MEDS: CALCIUM OYSTER SHELL 500 MG TABLET PO SCH (09:54)
[2019-08-12 12:29] VITALS: BP 152/73
[2019-08-12] MEDS: LURASIDONE HCL 60 MG TABLET PO SCH (16:59)
[2019-08-12 17:24] VITALS: BP 139/68
[2019-08-13 01:49] VITALS: BP 154/76
[2019-08-13] MEDS: LEVOTHYROXINE SODIUM 25 MCG TABLET PO SCH (06:56)
[2019-08-13] MEDS: MULTIVITAMINS WITH MINERALS, THERAPEUTIC TABLET PO SCH (09:22)
[2019-08-13] MEDS: LORATADINE 10 MG TABLET PO SCH (09:22)
[2019-08-13] MEDS: AmLODIPine BESYLATE 5 MG TABLET PO SCH (09:22)
[2019-08-13] MEDS: CALCIUM OYSTER SHELL 500 MG TABLET PO SCH (09:22)
[2019-08-13] MEDS: METOPROLOL SUCCINATE 25 MG ER TABLET PO SCH (09:22)
[2019-08-13] MEDS: VALSARTAN 160 MG TABLET PO SCH (09:23)
[2019-08-13 09:24] VITALS: BP 143/66
[2019-08-13 17:00] VITALS: BP 137/63
[2019-08-13] MEDS: LURASIDONE HCL 60 MG TABLET PO SCH (17:30)
[2019-08-14] MEDS: LEVOTHYROXINE SODIUM 25 MCG TABLET PO SCH (06:32)
[2019-08-14] MEDS: METOPROLOL SUCCINATE 25 MG ER TABLET PO SCH (10:00)
[2019-08-14] MEDS: MULTIVITAMINS WITH MINERALS, THERAPEUTIC TABLET PO SCH (10:00)
[2019-08-14] MEDS: AmLODIPine BESYLATE 5 MG TABLET PO SCH (10:00)
[2019-08-14] MEDS: CALCIUM OYSTER SHELL 500 MG TABLET PO SCH (10:00)
[2019-08-14] MEDS: LORATADINE 10 MG TABLET PO SCH (10:00)
[2019-08-14] MEDS: VALSARTAN 160 MG TABLET PO SCH (10:00)
[2019-08-14 10:31] VITALS: BP 165/88
[2019-08-14 16:20] VITALS: BP 144/57
[2019-08-14] MEDS: LURASIDONE HCL 60 MG TABLET PO SCH (17:09)
[2019-08-14] MEDS: GuaiFENesin/D-METHORPHAN [SUGAR-FREE] 200-20MG/10 ML SYRUP UDCUP PO PRN (19:00)
[2019-08-14] MEDS: SODIUM CHLORIDE 0.65% 44 ML NASAL SPRAY NASAL PRN (22:02)
[2019-08-15] MEDS: LEVOTHYROXINE SODIUM 25 MCG TABLET PO SCH (06:44)
[2019-08-15] MEDS: CALCIUM OYSTER SHELL 500 MG TABLET PO SCH (09:06)
[2019-08-15] MEDS: LORATADINE 10 MG TABLET PO SCH (09:07)
[2019-08-15] MEDS: MULTIVITAMINS WITH MINERALS, THERAPEUTIC TABLET PO SCH (09:07)
[2019-08-15] MEDS: SODIUM CHLORIDE 0.65% 44 ML NASAL SPRAY NASAL PRN ×2 (09:09→19:11)
[2019-08-15 10:08] VITALS: BP 178/68
[2019-08-15] MEDS: AmLODIPine BESYLATE 5 MG TABLET PO SCH (10:10)
[2019-08-15] MEDS: VALSARTAN 160 MG TABLET PO SCH (10:10)
[2019-08-15] MEDS: METOPROLOL SUCCINATE 25 MG ER TABLET PO SCH (10:10)
[2019-08-15] MEDS: LURASIDONE HCL 60 MG TABLET PO SCH (17:00)
[2019-08-15 19:59] VITALS: BP 100/60
[2019-08-16] MEDS: LEVOTHYROXINE SODIUM 25 MCG TABLET PO SCH (06:21)
[2019-08-16] MEDS: CALCIUM OYSTER SHELL 500 MG TABLET PO SCH (08:41)
[2019-08-16] MEDS: METOPROLOL SUCCINATE 25 MG ER TABLET PO SCH (08:41)
[2019-08-16] MEDS: LORATADINE 10 MG TABLET PO SCH (08:41)
[2019-08-16] MEDS: MULTIVITAMINS WITH MINERALS, THERAPEUTIC TABLET PO SCH (08:41)
[2019-08-16] MEDS: AmLODIPine BESYLATE 5 MG TABLET PO SCH (08:41)
[2019-08-16] MEDS: VALSARTAN 160 MG TABLET PO SCH (08:42)
[2019-08-16 10:20] VITALS: BP 166/77
[2019-08-16] MEDS: LURASIDONE HCL 60 MG TABLET PO SCH (16:39)
[2019-08-16 16:55] VITALS: BP 150/65
[2019-08-17] MEDS: LEVOTHYROXINE SODIUM 25 MCG TABLET PO SCH (06:35)
[2019-08-17] MEDS: CALCIUM OYSTER SHELL 500 MG TABLET PO SCH (09:00)
[2019-08-17] MEDS: MULTIVITAMINS WITH MINERALS, THERAPEUTIC TABLET PO SCH (09:00)
[2019-08-17] MEDS: AmLODIPine BESYLATE 5 MG TABLET PO SCH (09:21)
[2019-08-17] MEDS: LORATADINE 10 MG TABLET PO SCH (09:21)
[2019-08-17] MEDS: VALSARTAN 160 MG TABLET PO SCH (09:21)
[2019-08-17] MEDS: METOPROLOL SUCCINATE 25 MG ER TABLET PO SCH (09:21)
[2019-08-17 09:45] VITALS: BP 158/75
[2019-08-17] MEDS: SODIUM CHLORIDE 0.65% 44 ML NASAL SPRAY NASAL PRN (10:59)
[2019-08-17 16:36] VITALS: BP 140/67
[2019-08-17] MEDS: LURASIDONE HCL 60 MG TABLET PO SCH (17:25)
[2019-08-18] MEDS: LEVOTHYROXINE SODIUM 25 MCG TABLET PO SCH (06:40)
[2019-08-18] MEDS: SODIUM CHLORIDE 0.65% 44 ML NASAL SPRAY NASAL PRN ×2 (07:09→09:42)
[2019-08-18 08:00] VITALS: BP_SYST 61
[2019-08-18] MEDS: LORATADINE 10 MG TABLET PO SCH (09:41)
[2019-08-18] MEDS: VALSARTAN 160 MG TABLET PO SCH (09:41)
[2019-08-18] MEDS: AmLODIPine BESYLATE 5 MG TABLET PO SCH (09:41)
[2019-08-18] MEDS: METOPROLOL SUCCINATE 25 MG ER TABLET PO SCH (09:41)
[2019-08-18] MEDS: MULTIVITAMINS WITH MINERALS, THERAPEUTIC TABLET PO SCH (09:42)
[2019-08-18] MEDS: CALCIUM OYSTER SHELL 500 MG TABLET PO SCH (09:42)
[2019-08-18] MEDS: LURASIDONE HCL 60 MG TABLET PO SCH (16:57)
[2019-08-18 19:53] VITALS: BP 143/60
[2019-08-19] MEDS: LEVOTHYROXINE SODIUM 25 MCG TABLET PO SCH (06:45)
[2019-08-19 08:51] VITALS: BP 155/69
[2019-08-19] MEDS: VALSARTAN 160 MG TABLET PO SCH (09:40)
[2019-08-19] MEDS: MULTIVITAMINS WITH MINERALS, THERAPEUTIC TABLET PO SCH (09:40)
[2019-08-19] MEDS: AmLODIPine BESYLATE 5 MG TABLET PO SCH (09:40)
[2019-08-19] MEDS: CALCIUM OYSTER SHELL 500 MG TABLET PO SCH (09:40)
[2019-08-19] MEDS: LORATADINE 10 MG TABLET PO SCH (09:40)
[2019-08-19] MEDS: METOPROLOL SUCCINATE 25 MG ER TABLET PO SCH (09:41)
[2019-08-19 16:57] VITALS: BP 158/60
[2019-08-19] MEDS: LURASIDONE HCL 60 MG TABLET PO SCH (17:05)
[2019-08-19] MEDS: SODIUM CHLORIDE 0.65% 44 ML NASAL SPRAY NASAL PRN (19:44)
[2019-08-20 04:54] VITALS: BP 152/68
[2019-08-20] MEDS: LEVOTHYROXINE SODIUM 25 MCG TABLET PO SCH (06:45)
[2019-08-20 09:09] VITALS: BP 132/60
[2019-08-20] MEDS: MULTIVITAMINS WITH MINERALS, THERAPEUTIC TABLET PO SCH (09:43)
[2019-08-20] MEDS: AmLODIPine BESYLATE 5 MG TABLET PO SCH (09:43)
[2019-08-20] MEDS: LORATADINE 10 MG TABLET PO SCH (09:43)
[2019-08-20] MEDS: METOPROLOL SUCCINATE 25 MG ER TABLET PO SCH (09:44)
[2019-08-20] MEDS: CALCIUM OYSTER SHELL 500 MG TABLET PO SCH (09:44)
[2019-08-20] MEDS: VALSARTAN 160 MG TABLET PO SCH (09:45)
[2019-08-20] MEDS: LURASIDONE HCL 60 MG TABLET PO SCH (16:30)
[2019-08-20 20:28] VITALS: BP 151/72
[2019-08-21] MEDS: LEVOTHYROXINE SODIUM 25 MCG TABLET PO SCH (06:24)
[2019-08-21 08:00] VITALS: BP 157/83
[2019-08-21] MEDS: VALSARTAN 160 MG TABLET PO SCH (09:46)
[2019-08-21] MEDS: LORATADINE 10 MG TABLET PO SCH (09:46)
[2019-08-21] MEDS: METOPROLOL SUCCINATE 25 MG ER TABLET PO SCH (09:46)
[2019-08-21] MEDS: AmLODIPine BESYLATE 5 MG TABLET PO SCH (09:46)
[2019-08-21] MEDS: MULTIVITAMINS WITH MINERALS, THERAPEUTIC TABLET PO SCH (09:46)
[2019-08-21] MEDS: CALCIUM OYSTER SHELL 500 MG TABLET PO SCH (09:46)
[2019-08-21] MEDS: LURASIDONE HCL 60 MG TABLET PO SCH (16:33)
[2019-08-21 17:00] VITALS: BP 146/54
[2019-08-21] MEDS: SODIUM CHLORIDE 0.65% 44 ML NASAL SPRAY NASAL PRN (18:50)
[2019-08-22 04:43] VITALS: BP 146/74
[2019-08-22] MEDS: LEVOTHYROXINE SODIUM 25 MCG TABLET PO SCH (06:05)
[2019-08-22] MEDS: AmLODIPine BESYLATE 5 MG TABLET PO SCH (08:54)
[2019-08-22] MEDS: VALSARTAN 160 MG TABLET PO SCH (08:54)
[2019-08-22] MEDS: MULTIVITAMINS WITH MINERALS, THERAPEUTIC TABLET PO SCH (08:54)
[2019-08-22] MEDS: CALCIUM OYSTER SHELL 500 MG TABLET PO SCH (08:54)
[2019-08-22] MEDS: METOPROLOL SUCCINATE 25 MG ER TABLET PO SCH (08:54)
[2019-08-22] MEDS: LORATADINE 10 MG TABLET PO SCH (08:54)
[2019-08-22 11:16] VITALS: BP 157/65
[2019-08-22] MEDS: LURASIDONE HCL 60 MG TABLET PO SCH (16:29)
[2019-08-22 19:15] VITALS: BP 160/91
[2019-08-23 04:13] VITALS: BP 157/65
[2019-08-23] MEDS: LEVOTHYROXINE SODIUM 25 MCG TABLET PO SCH (06:57)
[2019-08-23] MEDS: METOPROLOL SUCCINATE 25 MG ER TABLET PO SCH (08:53)
[2019-08-23] MEDS: MULTIVITAMINS WITH MINERALS, THERAPEUTIC TABLET PO SCH (08:53)
[2019-08-23] MEDS: CALCIUM OYSTER SHELL 500 MG TABLET PO SCH (08:54)
[2019-08-23] MEDS: AmLODIPine BESYLATE 5 MG TABLET PO SCH (08:54)
[2019-08-23] MEDS: SODIUM CHLORIDE 0.65% 44 ML NASAL SPRAY NASAL PRN ×2 (08:54→18:42)
[2019-08-23] MEDS: LORATADINE 10 MG TABLET PO SCH (08:54)
[2019-08-23] MEDS: VALSARTAN 160 MG TABLET PO SCH (08:54)
[2019-08-23 13:46] VITALS: BP 133/78
[2019-08-23] MEDS: LURASIDONE HCL 60 MG TABLET PO SCH (16:57)
[2019-08-23 19:45] VITALS: BP 146/78
[2019-08-24 04:03] VITALS: BP 166/71
[2019-08-24] MEDS: LEVOTHYROXINE SODIUM 25 MCG TABLET PO SCH (06:18)
[2019-08-24] MEDS: CALCIUM OYSTER SHELL 500 MG TABLET PO SCH (08:09)
[2019-08-24] MEDS: LORATADINE 10 MG TABLET PO SCH (08:09)
[2019-08-24] MEDS: MULTIVITAMINS WITH MINERALS, THERAPEUTIC TABLET PO SCH (08:09)
[2019-08-24] MEDS: AmLODIPine BESYLATE 5 MG TABLET PO SCH (08:09)
[2019-08-24] MEDS: METOPROLOL SUCCINATE 25 MG ER TABLET PO SCH (08:09)
[2019-08-24] MEDS: VALSARTAN 160 MG TABLET PO SCH (08:09)
[2019-08-24] MEDS: SODIUM CHLORIDE 0.65% 44 ML NASAL SPRAY NASAL PRN (08:10)
[2019-08-24 08:42] VITALS: BP 147/60
[2019-08-24] MEDS: LURASIDONE HCL 60 MG TABLET PO SCH (17:18)
[2019-08-24 18:15] VITALS: BP 140/80
[2019-08-25 03:28] VITALS: BP 158/60
[2019-08-25] MEDS: LEVOTHYROXINE SODIUM 25 MCG TABLET PO SCH (06:49)
[2019-08-25] MEDS: CALCIUM OYSTER SHELL 500 MG TABLET PO SCH (09:27)
[2019-08-25] MEDS: AmLODIPine BESYLATE 5 MG TABLET PO SCH (09:27)
[2019-08-25] MEDS: MULTIVITAMINS WITH MINERALS, THERAPEUTIC TABLET PO SCH (09:27)
[2019-08-25] MEDS: VALSARTAN 160 MG TABLET PO SCH (09:27)
[2019-08-25] MEDS: LORATADINE 10 MG TABLET PO SCH (09:27)
[2019-08-25] MEDS: METOPROLOL SUCCINATE 25 MG ER TABLET PO SCH (09:27)
[2019-08-25 09:30] VITALS: BP 159/72
[2019-08-25] MEDS: SODIUM CHLORIDE 0.65% 44 ML NASAL SPRAY NASAL PRN (09:34)
[2019-08-25] MEDS: PETROLATUM,WHITE 28 GM JELLY TP PRN (09:35)
[2019-08-25] MEDS: LURASIDONE HCL 60 MG TABLET PO SCH (16:39)
[2019-08-25] MEDS: GuaiFENesin/D-METHORPHAN [SUGAR-FREE] 200-20MG/10 ML SYRUP UDCUP PO PRN (19:25)
[2019-08-25] MEDS: OLANZapine 5 MG RAPDIS TABLET PO PRN (19:25)
[2019-08-25 19:40] VITALS: BP 156/89
[2019-08-26] MEDS: SODIUM CHLORIDE 0.65% 44 ML NASAL SPRAY NASAL PRN ×2 (00:50→08:20)
[2019-08-26 01:00] VITALS: BP 144/61
[2019-08-26] MEDS: LEVOTHYROXINE SODIUM 25 MCG TABLET PO SCH (06:56)
[2019-08-26] MEDS: LORATADINE 10 MG TABLET PO SCH (08:18)
[2019-08-26] MEDS: CALCIUM OYSTER SHELL 500 MG TABLET PO SCH (08:18)
[2019-08-26] MEDS: METOPROLOL SUCCINATE 25 MG ER TABLET PO SCH (08:18)
[2019-08-26] MEDS: MULTIVITAMINS WITH MINERALS, THERAPEUTIC TABLET PO SCH (08:18)
[2019-08-26] MEDS: AmLODIPine BESYLATE 5 MG TABLET PO SCH (08:18)
[2019-08-26] MEDS: VALSARTAN 160 MG TABLET PO SCH (08:18)
[2019-08-26 09:22] VITALS: BP 145/58
[2019-08-26 16:00] VITALS: BP 140/79
[2019-08-26] MEDS: LURASIDONE HCL 60 MG TABLET PO SCH (16:45)
[2019-08-27 03:54] VITALS: BP 156/74
[2019-08-27] MEDS: LEVOTHYROXINE SODIUM 25 MCG TABLET PO SCH (06:28)
[2019-08-27] MEDS: LORATADINE 10 MG TABLET PO SCH (08:30)
[2019-08-27] MEDS: AmLODIPine BESYLATE 5 MG TABLET PO SCH (08:30)
[2019-08-27] MEDS: METOPROLOL SUCCINATE 25 MG ER TABLET PO SCH (08:31)
[2019-08-27] MEDS: SODIUM CHLORIDE 0.65% 44 ML NASAL SPRAY NASAL PRN (08:31)
[2019-08-27] MEDS: CALCIUM OYSTER SHELL 500 MG TABLET PO SCH (08:31)
[2019-08-27] MEDS: MULTIVITAMINS WITH MINERALS, THERAPEUTIC TABLET PO SCH (08:31)
[2019-08-27] MEDS: VALSARTAN 160 MG TABLET PO SCH (08:31)
[2019-08-27 10:07] VITALS: BP 152/65
[2019-08-27] MEDS: LURASIDONE HCL 60 MG TABLET PO SCH (16:51)
[2019-08-27 17:01] VITALS: BP 155/61
[2019-08-28] MEDS: LEVOTHYROXINE SODIUM 25 MCG TABLET PO SCH (06:33)
[2019-08-28] MEDS: AmLODIPine BESYLATE 5 MG TABLET PO SCH (09:44)
[2019-08-28] MEDS: METOPROLOL SUCCINATE 25 MG ER TABLET PO SCH (09:44)
[2019-08-28] MEDS: LORATADINE 10 MG TABLET PO SCH (09:44)
[2019-08-28] MEDS: VALSARTAN 160 MG TABLET PO SCH (09:44)
[2019-08-28] MEDS: CALCIUM OYSTER SHELL 500 MG TABLET PO SCH (09:44)
[2019-08-28] MEDS: MULTIVITAMINS WITH MINERALS, THERAPEUTIC TABLET PO SCH (09:44)
[2019-08-28] MEDS: SODIUM CHLORIDE 0.65% 44 ML NASAL SPRAY NASAL PRN ×3 (10:16→19:39)
[2019-08-28 12:30] VITALS: BP 155/62
[2019-08-28] MEDS: LURASIDONE HCL 60 MG TABLET PO SCH (16:29)
[2019-08-28 17:18] VITALS: BP 152/63
[2019-08-29 01:53] VITALS: BP 155/64
[2019-08-29] MEDS: LEVOTHYROXINE SODIUM 25 MCG TABLET PO SCH (06:59)
[2019-08-29] MEDS: VALSARTAN 160 MG TABLET PO SCH (08:17)
[2019-08-29] MEDS: CALCIUM OYSTER SHELL 500 MG TABLET PO SCH (08:17)
[2019-08-29] MEDS: METOPROLOL SUCCINATE 25 MG ER TABLET PO SCH (08:17)
[2019-08-29] MEDS: MULTIVITAMINS WITH MINERALS, THERAPEUTIC TABLET PO SCH (08:17)
[2019-08-29] MEDS: AmLODIPine BESYLATE 5 MG TABLET PO SCH (08:17)
[2019-08-29] MEDS: LORATADINE 10 MG TABLET PO SCH (08:17)
[2019-08-29] MEDS: SODIUM CHLORIDE 0.65% 44 ML NASAL SPRAY NASAL PRN (08:21)
[2019-08-29 08:30] VITALS: BP 156/59
[2019-08-29] MEDS: LURASIDONE HCL 60 MG TABLET PO SCH (16:35)
[2019-08-29 19:19] VITALS: BP 156/62
[2019-08-30] MEDS: LEVOTHYROXINE SODIUM 25 MCG TABLET PO SCH (06:37)
[2019-08-30] MEDS: CALCIUM OYSTER SHELL 500 MG TABLET PO SCH (09:05)
[2019-08-30] MEDS: LORATADINE 10 MG TABLET PO SCH (09:05)
[2019-08-30] MEDS: AmLODIPine BESYLATE 5 MG TABLET PO SCH (09:05)
[2019-08-30] MEDS: METOPROLOL SUCCINATE 25 MG ER TABLET PO SCH (09:05)
[2019-08-30] MEDS: MULTIVITAMINS WITH MINERALS, THERAPEUTIC TABLET PO SCH (09:05)
[2019-08-30] MEDS: VALSARTAN 160 MG TABLET PO SCH (09:05)
[2019-08-30 10:27] VITALS: BP 144/83
[2019-08-30 16:21] VITALS: BP 161/70
[2019-08-30] MEDS: LURASIDONE HCL 60 MG TABLET PO SCH (16:35)
[2019-08-31 00:55] VITALS: BP 161/83
[2019-08-31] MEDS: LEVOTHYROXINE SODIUM 25 MCG TABLET PO SCH (06:38)
[2019-08-31] MEDS: LORATADINE 10 MG TABLET PO SCH (09:08)
[2019-08-31] MEDS: MULTIVITAMINS WITH MINERALS, THERAPEUTIC TABLET PO SCH (09:08)
[2019-08-31] MEDS: AmLODIPine BESYLATE 5 MG TABLET PO SCH (09:08)
[2019-08-31] MEDS: VALSARTAN 160 MG TABLET PO SCH (09:08)
[2019-08-31] MEDS: CALCIUM OYSTER SHELL 500 MG TABLET PO SCH (09:08)
[2019-08-31] MEDS: METOPROLOL SUCCINATE 25 MG ER TABLET PO SCH (09:08)
[2019-08-31 09:20] VITALS: BP 163/74
[2019-08-31 15:40] VITALS: BP 183/74
[2019-08-31] MEDS: CloNIDine HCL 0.1 MG TABLET PO PRN (15:41)
[2019-08-31] MEDS: LURASIDONE HCL 60 MG TABLET PO SCH (17:29)
[2019-08-31 17:41] VITALS: BP 153/74
[2019-08-31 17:58] VITALS: BP 140/53
[2019-09-01 03:50] VITALS: BP 146/59
[2019-09-01] MEDS: LEVOTHYROXINE SODIUM 25 MCG TABLET PO SCH (06:45)
[2019-09-01 09:01] VITALS: BP 139/62
[2019-09-01] MEDS: MULTIVITAMINS WITH MINERALS, THERAPEUTIC TABLET PO SCH (09:57)
[2019-09-01] MEDS: AmLODIPine BESYLATE 5 MG TABLET PO SCH (09:57)
[2019-09-01] MEDS: LORATADINE 10 MG TABLET PO SCH (09:57)
[2019-09-01] MEDS: VALSARTAN 160 MG TABLET PO SCH (09:57)
[2019-09-01] MEDS: CALCIUM OYSTER SHELL 500 MG TABLET PO SCH (09:57)
[2019-09-01] MEDS: METOPROLOL SUCCINATE 25 MG ER TABLET PO SCH (09:58)
[2019-09-01 17:16] VITALS: BP 148/72
[2019-09-01] MEDS: LURASIDONE HCL 60 MG TABLET PO SCH (17:39)
[2019-09-02] MEDS: SODIUM CHLORIDE 0.65% 44 ML NASAL SPRAY NASAL PRN ×3 (05:03→20:27)
[2019-09-02] MEDS: LEVOTHYROXINE SODIUM 25 MCG TABLET PO SCH (06:39)
[2019-09-02] MEDS: MULTIVITAMINS WITH MINERALS, THERAPEUTIC TABLET PO SCH (08:38)
[2019-09-02] MEDS: METOPROLOL SUCCINATE 25 MG ER TABLET PO SCH (08:38)
[2019-09-02] MEDS: AmLODIPine BESYLATE 5 MG TABLET PO SCH (08:38)
[2019-09-02] MEDS: LORATADINE 10 MG TABLET PO SCH (08:39)
[2019-09-02] MEDS: VALSARTAN 160 MG TABLET PO SCH (08:39)
[2019-09-02] MEDS: CALCIUM OYSTER SHELL 500 MG TABLET PO SCH (08:39)
[2019-09-02 08:40] VITALS: BP 150/68
[2019-09-02] MEDS: LURASIDONE HCL 60 MG TABLET PO SCH (17:24)
[2019-09-02 20:21] VITALS: BP 146/57
[2019-09-03 06:19] VITALS: BP 189/86
[2019-09-03] MEDS: LEVOTHYROXINE SODIUM 25 MCG TABLET PO SCH (06:43)
[2019-09-03 08:00] VITALS: BP 163/72
[2019-09-03] MEDS: MULTIVITAMINS WITH MINERALS, THERAPEUTIC TABLET PO SCH (09:07)
[2019-09-03] MEDS: AmLODIPine BESYLATE 5 MG TABLET PO SCH (09:08)
[2019-09-03] MEDS: METOPROLOL SUCCINATE 25 MG ER TABLET PO SCH (09:08)
[2019-09-03] MEDS: LORATADINE 10 MG TABLET PO SCH (09:08)
[2019-09-03] MEDS: VALSARTAN 160 MG TABLET PO SCH (09:08)
[2019-09-03] MEDS: CALCIUM OYSTER SHELL 500 MG TABLET PO SCH (09:08)
[2019-09-03] MEDS: SODIUM CHLORIDE 0.65% 44 ML NASAL SPRAY NASAL PRN (12:07)
[2019-09-03] MEDS ORDERED: TUBERCULIN, PURIFIED PROTEIN DERIVATIVE 5 TU/0.1 ML SYRINGE ID ONE (15:45)
[2019-09-03] MEDS: LURASIDONE HCL 60 MG TABLET PO SCH (16:45)
[2019-09-03 20:42] VITALS: BP 167/72
[2019-09-04] MEDS: LEVOTHYROXINE SODIUM 25 MCG TABLET PO SCH (06:19)
[2019-09-04 09:04] VITALS: BP 152/61
[2019-09-04 09:12] VITALS: BP 143/79
[2019-09-04] MEDS: CALCIUM OYSTER SHELL 500 MG TABLET PO SCH (09:16)
[2019-09-04] MEDS: MULTIVITAMINS WITH MINERALS, THERAPEUTIC TABLET PO SCH (09:16)
[2019-09-04] MEDS: AmLODIPine BESYLATE 5 MG TABLET PO SCH (09:16)
[2019-09-04] MEDS: LORATADINE 10 MG TABLET PO SCH (09:16)
[2019-09-04] MEDS: METOPROLOL SUCCINATE 25 MG ER TABLET PO SCH (09:16)
[2019-09-04] MEDS: VALSARTAN 160 MG TABLET PO SCH (09:16)
[2019-09-04] MEDS: LURASIDONE HCL 60 MG TABLET PO SCH (17:10)
[2019-09-04] MEDS: SODIUM CHLORIDE 0.65% 44 ML NASAL SPRAY NASAL PRN (17:10)
[2019-09-04 17:52] VITALS: BP 141/55
[2019-09-05] MEDS: LEVOTHYROXINE SODIUM 25 MCG TABLET PO SCH (06:25)
[2019-09-05] MEDS: SODIUM CHLORIDE 0.65% 44 ML NASAL SPRAY NASAL PRN (06:58)
[2019-09-05 08:00] VITALS: BP 146/72
[2019-09-05] MEDS: AmLODIPine BESYLATE 5 MG TABLET PO SCH (08:40)
[2019-09-05] MEDS: MULTIVITAMINS WITH MINERALS, THERAPEUTIC TABLET PO SCH (08:40)
[2019-09-05] MEDS: LORATADINE 10 MG TABLET PO SCH (08:40)
[2019-09-05] MEDS: VALSARTAN 160 MG TABLET PO SCH (08:40)
[2019-09-05] MEDS: CALCIUM OYSTER SHELL 500 MG TABLET PO SCH (08:40)
[2019-09-05] MEDS: METOPROLOL SUCCINATE 25 MG ER TABLET PO SCH (08:40)
[2019-09-05 17:07] VITALS: BP 147/49
[2019-09-05] MEDS: LURASIDONE HCL 60 MG TABLET PO SCH (17:12)
[2019-09-06] MEDS: LEVOTHYROXINE SODIUM 25 MCG TABLET PO SCH (06:40)
[2019-09-06 08:40] VITALS: BP 145/56
[2019-09-06] MEDS: VALSARTAN 160 MG TABLET PO SCH (09:00)
[2019-09-06 09:28] VITALS: BP 131/56
[2019-09-06] MEDS: LORATADINE 10 MG TABLET PO SCH (09:34)
[2019-09-06] MEDS: MULTIVITAMINS WITH MINERALS, THERAPEUTIC TABLET PO SCH (09:34)
[2019-09-06] MEDS: METOPROLOL SUCCINATE 25 MG ER TABLET PO SCH (09:34)
[2019-09-06] MEDS: AmLODIPine BESYLATE 5 MG TABLET PO SCH (09:34)
[2019-09-06] MEDS: CALCIUM OYSTER SHELL 500 MG TABLET PO SCH (09:34)
[2019-09-06] MEDS: SODIUM CHLORIDE 0.65% 44 ML NASAL SPRAY NASAL PRN ×2 (13:56→15:54)
[2019-09-06 16:37] VITALS: BP 147/82
[2019-09-06] MEDS: LURASIDONE HCL 60 MG TABLET PO SCH (16:38)
[2019-09-07 01:17] VITALS: BP 150/84
[2019-09-07] MEDS: GuaiFENesin/D-METHORPHAN [SUGAR-FREE] 200-20MG/10 ML SYRUP UDCUP PO PRN (02:04)
[2019-09-07] MEDS: SODIUM CHLORIDE 0.65% 44 ML NASAL SPRAY NASAL PRN ×3 (02:04→16:33)
[2019-09-07] MEDS: LEVOTHYROXINE SODIUM 25 MCG TABLET PO SCH (06:43)
[2019-09-07 08:00] VITALS: BP 148/62
[2019-09-07] MEDS: MULTIVITAMINS WITH MINERALS, THERAPEUTIC TABLET PO SCH (09:26)
[2019-09-07] MEDS: VALSARTAN 160 MG TABLET PO SCH (09:26)
[2019-09-07] MEDS: AmLODIPine BESYLATE 5 MG TABLET PO SCH (09:27)
[2019-09-07] MEDS: METOPROLOL SUCCINATE 25 MG ER TABLET PO SCH (09:27)
[2019-09-07] MEDS: CALCIUM OYSTER SHELL 500 MG TABLET PO SCH (09:27)
[2019-09-07] MEDS: LORATADINE 10 MG TABLET PO SCH (09:27)
[2019-09-07] MEDS: LURASIDONE HCL 60 MG TABLET PO SCH (16:33)
[2019-09-07 16:37] VITALS: BP 140/68
[2019-09-08] MEDS: LEVOTHYROXINE SODIUM 25 MCG TABLET PO SCH (06:45)
[2019-09-08] MEDS: VALSARTAN 160 MG TABLET PO SCH (09:14)
[2019-09-08] MEDS: CALCIUM OYSTER SHELL 500 MG TABLET PO SCH (09:14)
[2019-09-08] MEDS: METOPROLOL SUCCINATE 25 MG ER TABLET PO SCH (09:14)
[2019-09-08] MEDS: LORATADINE 10 MG TABLET PO SCH (09:14)
[2019-09-08] MEDS: AmLODIPine BESYLATE 5 MG TABLET PO SCH (09:14)
[2019-09-08] MEDS: MULTIVITAMINS WITH MINERALS, THERAPEUTIC TABLET PO SCH (09:14)
[2019-09-08 09:39] VITALS: BP 155/67
[2019-09-08] MEDS: LURASIDONE HCL 60 MG TABLET PO SCH (16:41)
[2019-09-08 17:03] VITALS: BP 151/59
[2019-09-09 04:09] VITALS: BP 153/68
[2019-09-09] MEDS: LEVOTHYROXINE SODIUM 25 MCG TABLET PO SCH (06:11)
[2019-09-09] MEDS: CALCIUM OYSTER SHELL 500 MG TABLET PO SCH (08:22)
[2019-09-09] MEDS: LORATADINE 10 MG TABLET PO SCH (08:22)
[2019-09-09] MEDS: VALSARTAN 160 MG TABLET PO SCH (08:22)
[2019-09-09] MEDS: MULTIVITAMINS WITH MINERALS, THERAPEUTIC TABLET PO SCH (08:22)
[2019-09-09] MEDS: METOPROLOL SUCCINATE 25 MG ER TABLET PO SCH (08:22)
[2019-09-09] MEDS: AmLODIPine BESYLATE 5 MG TABLET PO SCH (08:22)
[2019-09-09 08:36] VITALS: BP 158/65
[2019-09-09] MEDS: SODIUM CHLORIDE 0.65% 44 ML NASAL SPRAY NASAL PRN (16:17)
[2019-09-09] MEDS: LURASIDONE HCL 60 MG TABLET PO SCH (17:01)
[2019-09-09 18:20] VITALS: BP 135/58
[2019-09-10 00:45] VITALS: BP 154/61
[2019-09-10] MEDS: LEVOTHYROXINE SODIUM 25 MCG TABLET PO SCH (06:52)
[2019-09-10] MEDS: METOPROLOL SUCCINATE 25 MG ER TABLET PO SCH (09:14)
[2019-09-10] MEDS: MULTIVITAMINS WITH MINERALS, THERAPEUTIC TABLET PO SCH (09:14)
[2019-09-10] MEDS: AmLODIPine BESYLATE 5 MG TABLET PO SCH (09:14)
[2019-09-10] MEDS: LORATADINE 10 MG TABLET PO SCH (09:14)
[2019-09-10] MEDS: VALSARTAN 160 MG TABLET PO SCH (09:14)
[2019-09-10] MEDS: CALCIUM OYSTER SHELL 500 MG TABLET PO SCH (09:14)
[2019-09-10 09:39] VITALS: BP 146/68
[2019-09-10] MEDS: LURASIDONE HCL 60 MG TABLET PO SCH (16:31)
[2019-09-10 18:31] VITALS: BP 162/77
[2019-09-11] MEDS: LEVOTHYROXINE SODIUM 25 MCG TABLET PO SCH (06:29)
[2019-09-11] MEDS: METOPROLOL SUCCINATE 25 MG ER TABLET PO SCH (08:43)
[2019-09-11] MEDS: MULTIVITAMINS WITH MINERALS, THERAPEUTIC TABLET PO SCH (08:43)
[2019-09-11] MEDS: CALCIUM OYSTER SHELL 500 MG TABLET PO SCH (08:43)
[2019-09-11] MEDS: AmLODIPine BESYLATE 5 MG TABLET PO SCH (08:43)
[2019-09-11] MEDS: VALSARTAN 160 MG TABLET PO SCH (08:43)
[2019-09-11] MEDS: LORATADINE 10 MG TABLET PO SCH (08:43)
[2019-09-11 08:48] VITALS: BP 170/77
[2019-09-11] MEDS: LURASIDONE HCL 60 MG TABLET PO SCH (16:50)
[2019-09-11 18:02] VITALS: BP 155/71
[2019-09-12] MEDS: LEVOTHYROXINE SODIUM 25 MCG TABLET PO SCH (06:45)
[2019-09-12] MEDS: VALSARTAN 160 MG TABLET PO SCH (08:22)
[2019-09-12] MEDS: CALCIUM OYSTER SHELL 500 MG TABLET PO SCH (08:22)
[2019-09-12] MEDS: METOPROLOL SUCCINATE 25 MG ER TABLET PO SCH (08:22)
[2019-09-12] MEDS: LORATADINE 10 MG TABLET PO SCH (08:22)
[2019-09-12] MEDS: AmLODIPine BESYLATE 5 MG TABLET PO SCH (08:22)
[2019-09-12] MEDS: MULTIVITAMINS WITH MINERALS, THERAPEUTIC TABLET PO SCH (08:22)
[2019-09-12 08:36] VITALS: BP 143/76
[2019-09-12] MEDS: SODIUM CHLORIDE 0.65% 44 ML NASAL SPRAY NASAL PRN (15:53)
[2019-09-12 16:00] VITALS: BP 165/76
[2019-09-12] MEDS: LURASIDONE HCL 60 MG TABLET PO SCH (16:34)
[2019-09-13] MEDS: LEVOTHYROXINE SODIUM 25 MCG TABLET PO SCH (06:39)
[2019-09-13 08:00] VITALS: BP 159/72
[2019-09-13] MEDS: AmLODIPine BESYLATE 5 MG TABLET PO SCH (08:40)
[2019-09-13] MEDS: METOPROLOL SUCCINATE 25 MG ER TABLET PO SCH (08:40)
[2019-09-13] MEDS: LORATADINE 10 MG TABLET PO SCH (08:40)
[2019-09-13] MEDS: MULTIVITAMINS WITH MINERALS, THERAPEUTIC TABLET PO SCH (08:40)
[2019-09-13] MEDS: VALSARTAN 160 MG TABLET PO SCH (08:40)
[2019-09-13] MEDS: CALCIUM OYSTER SHELL 500 MG TABLET PO SCH (08:40)
[2019-09-13] MEDS: PETROLATUM,WHITE 28 GM JELLY TP PRN (13:49)
[2019-09-13] MEDS: SODIUM CHLORIDE 0.65% 44 ML NASAL SPRAY NASAL PRN (13:50)
[2019-09-13] MEDS: LURASIDONE HCL 60 MG TABLET PO SCH (16:45)
[2019-09-13 16:51] VITALS: BP 136/60
[2019-09-14] MEDS: LEVOTHYROXINE SODIUM 25 MCG TABLET PO SCH (06:01)
[2019-09-14] MEDS: AmLODIPine BESYLATE 5 MG TABLET PO SCH (09:17)
[2019-09-14] MEDS: MULTIVITAMINS WITH MINERALS, THERAPEUTIC TABLET PO SCH (09:17)
[2019-09-14] MEDS: VALSARTAN 160 MG TABLET PO SCH (09:18)
[2019-09-14] MEDS: CALCIUM OYSTER SHELL 500 MG TABLET PO SCH (09:18)
[2019-09-14] MEDS: LORATADINE 10 MG TABLET PO SCH (09:18)
[2019-09-14] MEDS: METOPROLOL SUCCINATE 25 MG ER TABLET PO SCH (09:18)
[2019-09-14 10:02] VITALS: BP 179/74
[2019-09-14 16:21] VITALS: BP 154/71
[2019-09-14] MEDS: SODIUM CHLORIDE 0.65% 44 ML NASAL SPRAY NASAL PRN (17:31)
[2019-09-14] MEDS: LURASIDONE HCL 60 MG TABLET PO SCH (17:31)
[2019-09-15 05:11] VITALS: BP 140/68
[2019-09-15] MEDS: LEVOTHYROXINE SODIUM 25 MCG TABLET PO SCH (06:08)
[2019-09-15 08:00] VITALS: BP 143/65
[2019-09-15] MEDS: CALCIUM OYSTER SHELL 500 MG TABLET PO SCH (08:46)
[2019-09-15] MEDS: MULTIVITAMINS WITH MINERALS, THERAPEUTIC TABLET PO SCH (08:47)
[2019-09-15] MEDS: AmLODIPine BESYLATE 5 MG TABLET PO SCH (08:47)
[2019-09-15] MEDS: VALSARTAN 160 MG TABLET PO SCH (08:47)
[2019-09-15] MEDS: LORATADINE 10 MG TABLET PO SCH (08:47)
[2019-09-15] MEDS: METOPROLOL SUCCINATE 25 MG ER TABLET PO SCH (08:47)
[2019-09-15] MEDS: SODIUM CHLORIDE 0.65% 44 ML NASAL SPRAY NASAL PRN ×2 (09:41→16:06)
[2019-09-15] MEDS: LURASIDONE HCL 60 MG TABLET PO SCH (16:32)
[2019-09-15 17:47] VITALS: BP 142/63
[2019-09-16 04:46] VITALS: BP 153/72
[2019-09-16] MEDS: LEVOTHYROXINE SODIUM 25 MCG TABLET PO SCH (06:50)
[2019-09-16 08:00] VITALS: BP 179/72
[2019-09-16] MEDS: AmLODIPine BESYLATE 5 MG TABLET PO SCH (08:35)
[2019-09-16] MEDS: MULTIVITAMINS WITH MINERALS, THERAPEUTIC TABLET PO SCH (08:35)
[2019-09-16] MEDS: VALSARTAN 160 MG TABLET PO SCH (08:35)
[2019-09-16] MEDS: METOPROLOL SUCCINATE 25 MG ER TABLET PO SCH (08:35)
[2019-09-16] MEDS: CALCIUM OYSTER SHELL 500 MG TABLET PO SCH (08:35)
[2019-09-16] MEDS: LORATADINE 10 MG TABLET PO SCH (08:36)
[2019-09-16] MEDS: SODIUM CHLORIDE 0.65% 44 ML NASAL SPRAY NASAL PRN (16:01)
[2019-09-16] MEDS: LURASIDONE HCL 60 MG TABLET PO SCH (16:51)
[2019-09-16 17:05] VITALS: BP 134/60
[2019-09-17 04:26] VITALS: BP 165/58
[2019-09-17] MEDS: LEVOTHYROXINE SODIUM 25 MCG TABLET PO SCH (06:40)
[2019-09-17 09:06] VITALS: BP 181/70
[2019-09-17] MEDS: CALCIUM OYSTER SHELL 500 MG TABLET PO SCH (09:15)
[2019-09-17] MEDS: LORATADINE 10 MG TABLET PO SCH (09:16)
[2019-09-17] MEDS: AmLODIPine BESYLATE 5 MG TABLET PO SCH (09:16)
[2019-09-17] MEDS: MULTIVITAMINS WITH MINERALS, THERAPEUTIC TABLET PO SCH (09:16)
[2019-09-17] MEDS: METOPROLOL SUCCINATE 25 MG ER TABLET PO SCH (09:16)
[2019-09-17] MEDS: VALSARTAN 160 MG TABLET PO SCH (09:17)
[2019-09-17] MEDS: SODIUM CHLORIDE 0.65% 44 ML NASAL SPRAY NASAL PRN ×2 (09:18→16:11)
[2019-09-17] MEDS: LURASIDONE HCL 60 MG TABLET PO SCH (16:11)
[2019-09-17 17:00] VITALS: BP 160/67
[2019-09-18] MEDS: LEVOTHYROXINE SODIUM 25 MCG TABLET PO SCH (06:21)
[2019-09-18] MEDS: AmLODIPine BESYLATE 5 MG TABLET PO SCH (08:18)
[2019-09-18] MEDS: MULTIVITAMINS WITH MINERALS, THERAPEUTIC TABLET PO SCH (08:18)
[2019-09-18] MEDS: LORATADINE 10 MG TABLET PO SCH (08:18)
[2019-09-18] MEDS: VALSARTAN 160 MG TABLET PO SCH (08:18)
[2019-09-18] MEDS: CALCIUM OYSTER SHELL 500 MG TABLET PO SCH (08:18)
[2019-09-18] MEDS: METOPROLOL SUCCINATE 25 MG ER TABLET PO SCH (08:18)
[2019-09-18] MEDS: SODIUM CHLORIDE 0.65% 44 ML NASAL SPRAY NASAL PRN (08:19)
[2019-09-18 09:10] VITALS: BP 150/78
[2019-09-18 16:06] VITALS: BP 157/70
[2019-09-18] MEDS: LURASIDONE HCL 60 MG TABLET PO SCH (16:36)
[2019-09-19 04:55] VITALS: BP 169/90
[2019-09-19] MEDS: LEVOTHYROXINE SODIUM 25 MCG TABLET PO SCH (06:26)
[2019-09-19] MEDS: VALSARTAN 160 MG TABLET PO SCH (09:25)
[2019-09-19] MEDS: METOPROLOL SUCCINATE 25 MG ER TABLET PO SCH (09:25)
[2019-09-19] MEDS: CALCIUM OYSTER SHELL 500 MG TABLET PO SCH (09:25)
[2019-09-19] MEDS: AmLODIPine BESYLATE 5 MG TABLET PO SCH (09:25)
[2019-09-19] MEDS: MULTIVITAMINS WITH MINERALS, THERAPEUTIC TABLET PO SCH (09:25)
[2019-09-19] MEDS: LORATADINE 10 MG TABLET PO SCH (09:26)
[2019-09-19 09:29] VITALS: BP 167/87
[2019-09-19] MEDS: LURASIDONE HCL 60 MG TABLET PO SCH (16:54)
[2019-09-19] MEDS: SODIUM CHLORIDE 0.65% 44 ML NASAL SPRAY NASAL PRN ×2 (17:13→18:42)
[2019-09-19 17:41] VITALS: BP 166/73
[2019-09-20 04:54] VITALS: BP 143/69
[2019-09-20] MEDS: SODIUM CHLORIDE 0.65% 44 ML NASAL SPRAY NASAL PRN ×3 (06:45→15:42)
[2019-09-20] MEDS: LEVOTHYROXINE SODIUM 25 MCG TABLET PO SCH (06:54)
[2019-09-20 08:20] VITALS: BP 157/99
[2019-09-20] MEDS: AmLODIPine BESYLATE 5 MG TABLET PO SCH (08:48)
[2019-09-20] MEDS: METOPROLOL SUCCINATE 25 MG ER TABLET PO SCH (08:48)
[2019-09-20] MEDS: LORATADINE 10 MG TABLET PO SCH (08:48)
[2019-09-20] MEDS: MULTIVITAMINS WITH MINERALS, THERAPEUTIC TABLET PO SCH (08:48)
[2019-09-20] MEDS: CALCIUM OYSTER SHELL 500 MG TABLET PO SCH (08:48)
[2019-09-20] MEDS: VALSARTAN 160 MG TABLET PO SCH (08:48)
[2019-09-20] MEDS: LURASIDONE HCL 60 MG TABLET PO SCH (16:32)
[2019-09-20 17:35] VITALS: BP 149/59
[2019-09-21] MEDS: SODIUM CHLORIDE 0.65% 44 ML NASAL SPRAY NASAL PRN ×3 (01:46→19:27)
[2019-09-21 03:28] VITALS: BP 140/80
[2019-09-21] MEDS: LEVOTHYROXINE SODIUM 25 MCG TABLET PO SCH (06:35)
[2019-09-21 08:24] VITALS: BP 158/56
[2019-09-21] MEDS: AmLODIPine BESYLATE 5 MG TABLET PO SCH (08:50)
[2019-09-21] MEDS: METOPROLOL SUCCINATE 25 MG ER TABLET PO SCH (08:50)
[2019-09-21] MEDS: LORATADINE 10 MG TABLET PO SCH (08:50)
[2019-09-21] MEDS: VALSARTAN 160 MG TABLET PO SCH (08:50)
[2019-09-21] MEDS: CALCIUM OYSTER SHELL 500 MG TABLET PO SCH (08:50)
[2019-09-21] MEDS: MULTIVITAMINS WITH MINERALS, THERAPEUTIC TABLET PO SCH (08:50)
[2019-09-21 16:00] VITALS: BP 142/66
[2019-09-21] MEDS: LURASIDONE HCL 60 MG TABLET PO SCH (16:31)
[2019-09-22 04:39] VITALS: BP 116/54
[2019-09-22] MEDS: LEVOTHYROXINE SODIUM 25 MCG TABLET PO SCH (06:28)
[2019-09-22 08:36] VITALS: BP 158/57
[2019-09-22] MEDS: METOPROLOL SUCCINATE 25 MG ER TABLET PO SCH (09:03)
[2019-09-22] MEDS: AmLODIPine BESYLATE 5 MG TABLET PO SCH (09:03)
[2019-09-22] MEDS: CALCIUM OYSTER SHELL 500 MG TABLET PO SCH (09:03)
[2019-09-22] MEDS: LORATADINE 10 MG TABLET PO SCH (09:03)
[2019-09-22] MEDS: VALSARTAN 160 MG TABLET PO SCH (09:03)
[2019-09-22] MEDS: MULTIVITAMINS WITH MINERALS, THERAPEUTIC TABLET PO SCH (09:04)
[2019-09-22 16:00] VITALS: BP 152/67
[2019-09-22] MEDS: LURASIDONE HCL 60 MG TABLET PO SCH (16:31)
[2019-09-23 04:00] VITALS: BP 154/78
[2019-09-23] MEDS: LEVOTHYROXINE SODIUM 25 MCG TABLET PO SCH (06:26)
[2019-09-23 08:44] VITALS: BP 151/63
[2019-09-23] MEDS: LORATADINE 10 MG TABLET PO SCH (09:01)
[2019-09-23] MEDS: AmLODIPine BESYLATE 5 MG TABLET PO SCH (09:01)
[2019-09-23] MEDS: MULTIVITAMINS WITH MINERALS, THERAPEUTIC TABLET PO SCH (09:01)
[2019-09-23] MEDS: OLANZapine 5 MG RAPDIS TABLET PO PRN (09:01)
[2019-09-23] MEDS: METOPROLOL SUCCINATE 25 MG ER TABLET PO SCH (09:01)
[2019-09-23] MEDS: VALSARTAN 160 MG TABLET PO SCH (09:02)
[2019-09-23] MEDS: CALCIUM OYSTER SHELL 500 MG TABLET PO SCH (09:03)
[2019-09-23] MEDS: SODIUM CHLORIDE 0.65% 44 ML NASAL SPRAY NASAL PRN (09:20)
[2019-09-23 16:00] VITALS: BP 145/68
[2019-09-23] MEDS: LURASIDONE HCL 60 MG TABLET PO SCH (16:38)
[2019-09-24 05:43] VITALS: BP 160/78
[2019-09-24] MEDS: LEVOTHYROXINE SODIUM 25 MCG TABLET PO SCH (06:09)
[2019-09-24 08:00] VITALS: BP 148/66
[2019-09-24] MEDS: AmLODIPine BESYLATE 5 MG TABLET PO SCH (09:26)
[2019-09-24] MEDS: METOPROLOL SUCCINATE 25 MG ER TABLET PO SCH (09:26)
[2019-09-24] MEDS: LORATADINE 10 MG TABLET PO SCH (09:26)
[2019-09-24] MEDS: MULTIVITAMINS WITH MINERALS, THERAPEUTIC TABLET PO SCH (09:26)
[2019-09-24] MEDS: CALCIUM OYSTER SHELL 500 MG TABLET PO SCH (09:27)
[2019-09-24] MEDS: VALSARTAN 160 MG TABLET PO SCH (09:27)
[2019-09-24] MEDS: SODIUM CHLORIDE 0.65% 44 ML NASAL SPRAY NASAL PRN (13:00)
[2019-09-24 16:00] VITALS: BP 156/51
[2019-09-24] MEDS: LURASIDONE HCL 40 MG TABLET PO SCH (16:46)
[2019-09-24 19:46] VITALS: BP 156/61
[2019-09-25] MEDS: LEVOTHYROXINE SODIUM 25 MCG TABLET PO SCH (06:33)
[2019-09-25] MEDS: MULTIVITAMINS WITH MINERALS, THERAPEUTIC TABLET PO SCH (08:10)
[2019-09-25] MEDS: METOPROLOL SUCCINATE 25 MG ER TABLET PO SCH (08:10)
[2019-09-25] MEDS: LORATADINE 10 MG TABLET PO SCH (08:10)
[2019-09-25] MEDS: CALCIUM OYSTER SHELL 500 MG TABLET PO SCH (08:10)
[2019-09-25] MEDS: VALSARTAN 160 MG TABLET PO SCH (08:10)
[2019-09-25] MEDS: AmLODIPine BESYLATE 5 MG TABLET PO SCH (08:10)
[2019-09-25 09:41] VITALS: BP 149/58
[2019-09-25] MEDS ORDERED: PNEUMOCOCCAL VACCINE POLYVALENT 0.5 ML VIAL [PPSV23] IM ONE (15:00)
[2019-09-25 16:00] VITALS: BP 157/82
[2019-09-25] MEDS: SODIUM CHLORIDE 0.65% 44 ML NASAL SPRAY NASAL PRN ×2 (16:51→22:17)
[2019-09-25] MEDS: LURASIDONE HCL 40 MG TABLET PO SCH (16:51)
[2019-09-25] MEDS: PETROLATUM,WHITE 28 GM JELLY TP PRN (19:06)
[2019-09-25] MEDS: MAG HYDROX/AL HYDROX/SIMETH ES 30 ML SUSPENSION UDCUP PO PRN (20:32)
[2019-09-26 00:34] VITALS: BP 145/64
[2019-09-26] MEDS: LEVOTHYROXINE SODIUM 25 MCG TABLET PO SCH (06:48)
[2019-09-26 08:00] VITALS: BP 170/69
[2019-09-26] MEDS: LORATADINE 10 MG TABLET PO SCH (08:32)
[2019-09-26] MEDS: METOPROLOL SUCCINATE 25 MG ER TABLET PO SCH (08:32)
[2019-09-26] MEDS: MULTIVITAMINS WITH MINERALS, THERAPEUTIC TABLET PO SCH (08:32)
[2019-09-26] MEDS: CALCIUM OYSTER SHELL 500 MG TABLET PO SCH (08:33)
[2019-09-26] MEDS: VALSARTAN 160 MG TABLET PO SCH (08:33)
[2019-09-26] MEDS: AmLODIPine BESYLATE 5 MG TABLET PO SCH (08:33)
[2019-09-26] MEDS: SODIUM CHLORIDE 0.65% 44 ML NASAL SPRAY NASAL PRN ×2 (08:33→12:52)
[2019-09-26] MEDS ORDERED: LURA40TA2 PO (09:12)
[2019-09-26 09:19] VITALS: BP 140/63
[2019-09-26] MEDS ORDERED: MULT-248 PO (09:44)
[2019-09-26] MEDS ORDERED: AMLO5TAB9 PO (09:44)
[2019-09-26] MEDS ORDERED: VALS160T2 PO (09:44)
[2019-09-26] MEDS ORDERED: LEVO25TA9 PO (09:44)
== END 2019-09-26 14:40 | DRG 885 ==
LOC: EMS 07:02 → 3EI 16:45
PROVIDERS: ADMIT Psychiatry & Neurology Psychiatry; ATTEND Psychiatry & Neurology Psychiatry
PROC: 3E0234Z Introduction of Serum, Toxoid and Vaccine into Muscle, Percutaneous Approach (ICD-10-PCS; principal; 2019-09-25)
DX: F20.0 Paranoid schizophrenia (principal); I10 Essential (primary) hypertension; D64.9 Anemia, unspecified; E03.9 Hypothyroidism, unspecified; M19.90 Unspecified osteoarthritis, unspecified site; M81.0 Age-related osteoporosis without current pathological fracture; Z81.8 Family history of other mental and behavioral disorders; Z82.49 Family history of ischemic heart disease and other diseases of the circulatory system; Z91.14 Patient's other noncompliance with medication regimen; Z91.19 Patient's noncompliance with other medical treatment and regimen; F32.9 Major depressive disorder, single episode, unspecified; F41.9 Anxiety disorder, unspecified; Z23 Encounter for immunization
CPT/HCPCS: 83036; 84439; 84443; 86592; 86708; 90732; 93005; G0480; J1200; J1630; J2060; J3420